=== PATIENT | male | born 1935 | race Caucasian/White ===

== ENCOUNTER 2016-07-07 15:03 | Emergency (ER) | payer MEDICARE ==
[2016-07-07] MEDS ORDERED: Fluorescein Sodium TOPICAL* 1 MG TEST ONE (16:06)
[2016-07-07] MEDS ORDERED: BSS OPTH.SOL* BTL ONE (16:06)
[2016-07-07] MEDS ORDERED: Tetracaine 0.5% OPTH.SOL 15ML* BTL ONE (16:07)
[2016-07-07 16:09] VITALS: BP 177/106
--- NOTE | 2016-07-07 16:09 | UC ---
Eye Complaint HPI - HPI Summary HPI Summary: irritation of right eye occurred during shower this morning, light bothers his eye vision is blurry from the clear drainage - History of Current Complaint Chief Complaint: UCEye Stated Complaint: EYE IRRITATION Time Seen by Provider: 07/07/16 16:00 Hx Obtained From: Patient Onset/Duration: Sudden Onset, Lasting Hours, Still Present Timing: Constant Severity Initially: Moderate Severity Currently: Moderate Pain Intensity: 5 Pain Scale Used: 0-10 Numeric Location of Injury: Conjunctiva Aggravating Factor(s): Light Alleviating Factor(s): Darkness Associated Signs And Symptoms: Positive: Drainage (Clear) - Allergies/Home Medications Allergies/Adverse Reactions: Allergies Allergy/AdvReac Type Severity Reaction Status Date / Time No Known Allergies Allergy Verified 07/07/16 15:57 PMH/Surg Hx/FS Hx/Imm Hx Previously Healthy: No Endocrine History Of: Denies: Diabetes Cardiovascular History Of: Reports: Hypertension Denies: Pacemaker/ICD Respiratory History Of: Denies: Asthma GI/ History Of: Denies: Renal Disease - Surgical History Surgical History: Yes Surgery Procedure, Year, and Place: pelvic fx, bladder tumor - Family History Known Family History: Positive: Hypertension - Social History Occupation: Retired Lives: With Family Alcohol Use: Occasionally Substance Use Type: None Smoking Status (MU): Current Some Day Smoker - Immunization History Most Recent Tetanus Shot: within last 5 years Review of Systems Constitutional: Negative Skin: Negative Eyes: Blurred Vision - od, Drainage - od, Eye Redness - od, Other - upper lid puffy ENT: Negative Respiratory: Negative Cardiovascular: Negative Gastrointestinal: Negative Genitourinary: Negative Motor: Negative Neurovascular: Negative Musculoskeletal: Negative Neurological: Negative Psychological: Negative All Other Systems Reviewed And Are Negative: Yes Physical Exam Triage Information Reviewed: Yes Appearance: Well-Appearing, No Pain Distress, Well-Nourished Vital Signs Reviewed: Yes Eye Exam: Normal Eyes: Positive: Conjunctiva Clear - os, Conjunctiva Inflamed - od, Discharge - clear od ENT Exam: Normal ENT: Positive: Normal ENT inspection, Hearing grossly normal, Pharynx normal, TMs normal. Negative: Nasal congestion, Nasal drainage, Tonsillar swelling, Tonsillar exudate, Trismus, Muffled/hoarse voice Dental Exam: Normal Neck exam: Normal Neck: Positive: Supple, Nontender, No Lymphadenopathy Respiratory Exam: Normal Respiratory: Positive: Chest non-tender, Lungs clear, Normal breath sounds, No respiratory distress, No accessory muscle use Cardiovascular Exam: Normal Cardiovascular: Positive: RRR, Pulses Normal, Brisk Capillary Refill Musculoskeletal Exam: Normal Musculoskeletal: Positive: Strength Intact, ROM Intact, No Edema Neurological Exam: Normal Neurological: Positive: Alert, Muscle Tone Normal Psychological Exam: Normal Psychological: Positive: Normal Response To Family, Age Appropriate Behavior Skin Exam: Normal Re-Evaluation - Re-Evaluation First Eval Change: Unchanged - eye stained ulceration at 7pm and 11pm no fb Eye Complaint Course/Dx - Course Course Of Treatment: cipro drops, follow with his opthomologist tomorrow, tylenol/ibuprofen for pain - Differential Dx/Diagnosis Differential Diagnosis/HQI/PQRI: Conjunctivitis, Corneal Abrasion, Uveitis Provider Diagnoses: OD corneal ulceration Discharge - Discharge Plan Condition: Stable Disposition: HOME Prescriptions: Ciprofloxacin 0.3% [email or web address]* [Cipro 0.3% Opth*] 2 drop RIGHT EYE Q4H #1 btl Patient Education Materials: Ciprofloxacin (Into the eye), How to Use Eye Drops (ED), Corneal Ulcer (ED), DASH Eating Plan (ED), Hypertension (ED) Referrals: George Ding MD [Primary Care Provider] - Additional Instructions: Follow up with Dr. Jack Ridley on Friday for a re-check
== END 2016-07-07 16:44 | disposition home or self-care (01) ==
LOC: UCEAST 15:03
DX: H16.001 Unspecified corneal ulcer, right eye (principal); F17.290 Nicotine dependence, other tobacco product, uncomplicated; I10 Essential (primary) hypertension
CPT/HCPCS: 99212; A9270-GY; G0463

== ENCOUNTER 2016-07-19 14:46 | Emergency (ER) | payer MEDICARE ==
[2016-07-19 14:54] VITALS: BP 154/96
[2016-07-19 16:18] LABS: Hematocrit 54 % (42-52); Hemoglobin 17.7 g/dl (14.0-18.0); Mean Corpuscular HGB Conc 33 g/dl (31-36); Mean Corpuscular Hemoglobin 30 pg (27-31); Mean Corpuscular Volume 92 fL (80-94); Mean Platelet Volume 9 um3 (7.4-10.4); Red Blood Count 5.88 10^6/ul (4.0-5.4); Red Cell Distribution Width 16 % (10.5-15); White Blood Count 12.3 10^3/ul (3.5-10.8)
[2016-07-19 16:34] LABS: C Reactive Protein 20.25 mg/L (< 5.00); Calcium 10.3 mg/dL (8.6-10.3); EGFR African American 101.8 (>60); EGFR Non-African American 79.2 (>60); Globulin 3.2 g/dL (2-4); Potassium 3.6 mmol/L (3.5-5.0); Total Bilirubin 0.4 mg/dL (0.2-1.0); Total Protein 7.2 g/dL (6.4-8.9)
[2016-07-19] MEDS ORDERED: NS 0.9% 1000 ML* 1,000 ML IV ONE (17:23)
[2016-07-19] MEDS ORDERED: Vancomycin(*) 1,250 MG in NS 0.9% 250 ML* 250 ML IVPB ONE (17:25)
--- NOTE | 2016-07-19 17:33 | ED ---
Skin Complaint - HPI Summary HPI Summary: Pt sent here from [facility] w/ abscess and pain along front of waistline x 2 days. No sure of this was present sooner however he only felt it yesterday. Only hurt to touch - otherwise, doesn't notice it. Denies fever, chills, drainage, new onset fatigue (reports feeling more tired over the past 1 year - his daughter comments it's been 2 years). He has diabetes which is typically 120's and controlled w/ metformin 500mg with breakfast. No known h/o MRSA. Takes coumadin for a. fib - due to have labs checked today. - History of Current Complaint Chief Complaint: EDGeneral Time Seen by Provider: 07/19/16 16:19 Stated Complaint: INFECTION Hx Obtained From: Patient, Family/Data Integrity Consultant - daughter Pain Intensity: 0 - Allergy/Home Medications Allergies/Adverse Reactions: Allergies Allergy/AdvReac Type Severity Reaction Status Date / Time No Known Allergies Allergy Verified 07/07/16 15:57 PMH/Surg Hx/FS Hx/Imm Hx Previously Healthy: Yes Endocrine/Hematology History: Reports: Hx Anticoagulant Therapy - coumadin, Hx Diabetes - well controlled w/ metformin 500mg QD Denies: Hx Thyroid Disease Cardiovascular History: Reports: Hx Atrial Fibrillation, Hx Hypertension Denies: Hx Congestive Heart Failure, Hx Pacemaker/ICD Respiratory History: Denies: Hx Asthma, Hx Chronic Obstructive Pulmonary Disease (COPD) GI History: Denies: Hx Ulcer History: Denies: Hx Renal Disease Sensory History: Denies: Hx Hearing Aid Psychiatric History: Denies: Hx Panic Disorder - Cancer History Cancer Type, 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 Hx Chemotherapy: No Hx Radiation Therapy: Yes - Surgical History Surgery Procedure, Year, and Place: pelvic fx, bladder tumor - Immunization History Date of Tetanus Vaccine: within 10 years Infectious Disease History: No Infectious Disease History: Denies: Hx Clostridium Difficile, Hx Hepatitis, Hx Human Immunodeficiency Virus (HIV), Hx of Known/Suspected MRSA, Hx Shingles, Hx Tuberculosis, Hx Known/ Suspected VRE, Hx Known/Suspected VRSA, History Other Infectious Disease, Traveled Outside the [place] in Last 30 Days - Family History Known Family History: Positive: Hypertension - Social History Occupation: Retired Lives: With Family - daughter Alcohol Use: Occasionally Hx Substance Use: No Substance Use Type: Reports: None Smoking Status (MU): Current Some Day Smoker Type: Cigars Review of Systems Positive: Fatigue - chronic. Negative: Fever, Chills Negative: Chest Pain Negative: Shortness Of Breath Positive: no symptoms reported Skin: Other - see HPI Negative: Headache Psychological: Normal All Other Systems Reviewed And Are Negative: Yes Physical Exam Triage Information Reviewed: Yes Vital Signs On Initial Exam: Initial Vitals Temp Pulse Resp BP Pulse Ox 96.9 F 107 20 154/96 98 07/19/16 14:51 07/19/16 14:51 07/19/16 14:51 07/19/16 14:51 07/19/16 14:51 Vital Signs Reviewed: Yes Appearance: Positive: Well-Appearing, No Pain Distress - at rest - pain w/ palpation of affected area, Obese Skin: Positive: Warm, Dry - 3cm area of raised, shiny erythematous tissue with central pore which appears to be a 2mm open comedone - peripheral erythema extends out 5-6cm - no drainge - TTP Head/Face: Positive: Other - rosacea w/ rhinophyma Eyes: Positive: EOMI ENT: Positive: Hearing grossly normal Respiratory/Lung Sounds: Positive: Clear to Auscultation, Breath Sounds Present Cardiovascular: Positive: Normal, RRR, Pulses are Symmetrical in both Upper and Lower Extremities Abdomen Description: Positive: Nontender, Soft Bowel Sounds: Positive: Present Musculoskeletal: Positive: Normal, Strength/ROM Intact Neurological: Positive: Normal, Sensory/Motor Intact, Alert, Oriented to Person Place, Time, CN Intact II-III Psychiatric: Positive: Normal Procedures - Incision and Drainage Site: Abdomen (anterior waistline) Anesthesia: Topical - lidocaine Instrument(s): Needle - 18 gauge - seroparticulate fluid aspirated - 3cc; cx taken Packing: Other - no packing - covered w/ ab gauze pad - henodynamically stable - pt tolerated well Diagnostics - Vital Signs Vital Signs Temp Pulse Resp BP Pulse Ox 07/19/16 14:53 98.5 F 103 20 154/96 98 07/19/16 14:51 96.9 F 107 20 154/96 98 - Laboratory Lab Results: Lab Results 07/19/16 07/19/16 07/19/16 Range/Units 16:10 16:10 16:10 WBC 12.3 H (3.5-10.8) 10^3/ul RBC 5.88 H (4.0-5.4) 10^6/ul Hgb 17.7 (14.0-18.0) g/dl Hct 54 H (42-52) % MCV 92 (80-94) fL MCH 30 (27-31) pg MCHC 33 (31-36) g/dl RDW 16 H (10.5-15) % Plt Count 210 (150-450) 10^3/ul MPV 9 (7.4-10.4) um3 Neut % (Auto) 77.7 (38-83) % Lymph % (Auto) 13.5 L (25-47) % [place] % (Auto) 7.2 (1-9) % Eos % (Auto) 1.1 (0-6) % Baso % (Auto) 0.5 (0-2) % Absolute Neuts (auto) 9.5 H (1.5-7.7) 10^3/ul Absolute Lymphs (auto) 1.7 (1.0-4.8) 10^3/ul Absolute Monos (auto) 0.9 H (0-0.8) 10^3/ul Absolute Eos (auto) 0.1 (0-0.6) 10^3/ul Absolute Basos (auto) 0.1 (0-0.2) 10^3/ul Absolute Nucleated RBC 0 10^3/ul Nucleated RBC % 0 INR (Anticoag Therapy) 2.24 H (0.89-1.11) Sodium 135 (133-145) mmol/L Potassium 3.6 (3.5-5.0) mmol/L Chloride 101 (101-111) mmol/L Carbon Dioxide 27 (22-32) mmol/L Anion Gap 7 (2-11) mmol/L BUN 12 (6-24) mg/dL Creatinine 0.92 (0.67-1.17) mg/dL Est GFR ( Amer) 101.8 (>60) Est GFR (Non-Af Amer) 79.2 (>60) BUN/Creatinine Ratio 13.0 (8-20) Glucose 170 H (70-100) mg/dL Lactic Acid (0.5-2.0) mmol/L Calcium 10.3 (8.6-10.3) mg/dL Total Bilirubin 0.40 (0.2-1.0) mg/dL AST 22 (13-39) U/L ALT 31 (7-52) U/L Alkaline Phosphatase 76 (34-104) U/L C-Reactive Protein 20.25 H (< 5.00) mg/L Total Protein 7.2 (6.4-8.9) g/dL Albumin 4.0 (3.2-5.2) g/dL Globulin 3.2 (2-4) g/dL Albumin/Globulin Ratio 1.3 (1-3) // Range/Units 16:10 WBC (3.5-10.8) 10^3/ul RBC (4.0-5.4) 10^6/ul Hgb (14.0-18.0) g/dl Hct (42-52) % MCV (80-94) fL MCH (27-31) pg MCHC (31-36) g/dl RDW (10.5-15) % Plt Count (150-450) 10^3/ul MPV (7.4-10.4) um3 Neut % (Auto) (38-83) % Lymph % (Auto) (25-47) % [place] % (Auto) (1-9) % Eos % (Auto) (0-6) % Baso % (Auto) (0-2) % Absolute Neuts (auto) (1.5-7.7) 10^3/ul Absolute Lymphs (auto) (1.0-4.8) 10^3/ul Absolute Monos (auto) (0-0.8) 10^3/ul Absolute Eos (auto) (0-0.6) 10^3/ul Absolute Basos (auto) (0-0.2) 10^3/ul Absolute Nucleated RBC 10^3/ul Nucleated RBC % INR (Anticoag Therapy) (0.89-1.11) Sodium (133-145) mmol/L Potassium (3.5-5.0) mmol/L Chloride (101-111) mmol/L Carbon Dioxide (22-32) mmol/L Anion Gap (2-11) mmol/L BUN (6-24) mg/dL Creatinine (0.67-1.17) mg/dL Est GFR ( Amer) (>60) Est GFR (Non-Af Amer) (>60) BUN/Creatinine Ratio (8-20) Glucose (70-100) mg/dL Lactic Acid 2.4 H* (0.5-2.0) mmol/L Calcium (8.6-10.3) mg/dL Total Bilirubin (0.2-1.0) mg/dL AST (13-39) U/L ALT (7-52) U/L Alkaline Phosphatase (34-104) U/L C-Reactive Protein (< 5.00) mg/L Total Protein (6.4-8.9) g/dL Albumin (3.2-5.2) g/dL Globulin (2-4) g/dL Albumin/Globulin Ratio (1-3) Result Diagrams: 07/19/16 16:10 07/19/16 16:10 Lab Statement: Any lab studies that have been ordered have been reviewed, and results considered in the medical decision making process. Course/Dx - Diagnoses Provider Diagnoses: Abscess, abdomen - Physician Notifications Discussed Care Of Patient With: Dr. Malave Discharge - Discharge Plan Condition: Stable Disposition: HOME Prescriptions: DOXYcycline CAP(*) [DOXYcycline 100MG CAP(*)] 100 mg PO BID #20 cap Patient Education Materials: Incision and Drainage (ED), Abscess (ED) Referrals: George Ding MD [Primary Care Provider] - Additional Instructions: Apply warm saline compress to keep tissue soft and reduce inflammation as well as allow for drainage. Otherwise, keep wound clean and covered. May way daily with antibacterial soap and rinse well with water - pat dry with clean cloth and apply clean/dry gauze pad - do not apply antibiotic ointment. You may take acetaminophen and/or ibuprofen for pain. Follow-up with PCP Friday. Continue to monitor glucose levels. *If you develop fever, chills, lethargy, confusion, vomiting or spreading of redness in affected area, return to ED
[2016-07-19] MEDS ORDERED: NS 0.9% 250 ML* 0 ML ONE (17:46)
== END 2016-07-19 20:21 | disposition home or self-care (01) ==
LOC: ED 14:46
DX: L02.211 Cutaneous abscess of abdominal wall (principal); E11.9 Type 2 diabetes mellitus without complications; I48.91 Unspecified atrial fibrillation; Z79.01 Long term (current) use of anticoagulants; Z79.899 Other long term (current) drug therapy
CPT/HCPCS: 10060; 36415; 80053; 83605; 85025; 85610; 86140; 87070; 87077; 87205; 87640; 87641; 96365; 99282; J3370

== ENCOUNTER 2016-11-12 09:56 | Emergency (ER) | payer MEDICARE ==
--- NOTE | 2016-11-12 11:09 | RAD ---
HISTORY: Right shoulder trauma COMPARISONS: None VIEWS: 4, Frontal internal rotation, external rotation, outlet, and axillary views of the right shoulder. Evaluation is somewhat limited by positioning. FINDINGS: BONE DENSITY: There is diffuse osteopenia. BONES: There is no displaced fracture. JOINTS: There is mild osteoporosis of the a.c. and glenohumeral joints. ALIGNMENT: There is no dislocation. SOFT TISSUES: Unremarkable. OTHER FINDINGS: None. IMPRESSION: OSTEOPENIA. NO ACUTE OSSEOUS INJURY. THE DEGREE OF OSTEOPENIA MAY MAKE A NONDISPLACED FRACTURE RADIOGRAPHICALLY OCCULT. IF SYMPTOMS PERSIST, RECOMMEND REPEAT IMAGING.
--- NOTE | 2016-11-12 11:13 | RAD ---
INDICATION: Right wrist injury. TECHNIQUE: 3 views of the right wrist were obtained. FINDINGS: The bones are normal alignment. No fracture is seen. There is mild widening of the scapholunate joint space suggesting the possibility of a scapholunate ligament tear. IMPRESSION: 1. NO EVIDENCE FOR FRACTURE. 2. POSSIBLE SCAPHOLUNATE LIGAMENT TEAR. THIS CAN BE FURTHER EVALUATED WITH AN MRI OF THE WRIST.
--- NOTE | 2016-11-12 11:13 | RAD ---
HISTORY: Right elbow trauma COMPARISONS: None VIEWS: 2, Frontal and lateral views of the right elbow FINDINGS: BONE DENSITY: Normal. BONES: There is no displaced fracture. JOINTS: There is no arthropathy. There is no posterior supracondylar fat pad to suggest a joint effusion. ALIGNMENT: There is no dislocation. SOFT TISSUES: Unremarkable. OTHER FINDINGS: None. IMPRESSION: NO ACUTE OSSEOUS INJURY. IF SYMPTOMS PERSIST, RECOMMEND REPEAT IMAGING.
--- NOTE | 2016-11-12 12:07 | UC ---
Amandeep Valentin Angela[facility] 11/12/16 at 1032 . Upper Extremity HPI - HPI Summary HPI Summary: In Room Note: This pt is a 81 y/o male presenting to [facility] c/o right arm and right shoulder pain s/p falling a ladder 2 days ago on Friday. Pt reports he was on a ladder when he slipped and hit his right hand and right shoulder, landing on his knees. He states he has an ecchymosis on the palm of his right hand. Pt has not taken any pain medications. He has difficulty sleeping secondary to pain. Per daughter in law, pt has a "smokers" cough that is every day. Pt denies SOB, chest pain, He has a hx of dislocated shoulders. Last time pt saw his PCP was a few months ago. PMHx: sleep apnea. MD's Note: 81 y/o male with history of atrial fibrillation reports falling 2 days ago. Vital signs are stable. BP is 135/91, pulse ox is 98. Pt has 6 out of 10 pain. PMHx: hypertension, type 2 diabetes. Pt is on Lisinopril. Nurse's Note: pt fell off of a ladder on friday hitting his rt upper arm. pt states that he was only on the second wrung. - History of Current Complaint Chief Complaint: UCUpperExtremity Stated Complaint: ARM INJURY Hx Obtained From: Patient, Family/Supervisor Cytology - Daughter in law Onset/Duration: Gradual Onset Pain Intensity: 6 Pain Scale Used: 0-10 Numeric Aggravating Factor(s): Movement Alleviating Factor(s): Nothing Associated Signs And Symptoms: Positive: Swelling, Bruising. Negative: Fever, Weakness, Numbness/Tingling Related History: Dominant Hand Right - Allergies/Home Medications Allergies/Adverse Reactions: Allergies Allergy/AdvReac Type Severity Reaction Status Date / Time No Known Allergies Allergy Verified 07/07/16 15:57 PMH/Surg Hx/FS Hx/Imm Hx - Additional Past Medical History Additional PMH: PMHx: sleep apnea. Endocrine History: Diabetes - Type 2 Cardiovascular History: Hypertension Other Respiratory History: DENIES: COPD, asthma - Surgical History Surgical History: Yes Surgery Procedure, Year, and Place: pelvic fx, bladder tumor - Family History Known Family History: Positive: Hypertension - mother - Social History Alcohol Use: Rare Substance Use Type: None Smoking Status (MU): Current Some Day Smoker Type: Cigars - Immunization History Most Recent Influenza Vaccination: denies Most Recent Tetanus Shot: within last 5 years Review of Systems Constitutional: Negative Skin: Bruising - on right hand Eyes: Negative ENT: Negative Respiratory: Negative Cardiovascular: Negative Gastrointestinal: Negative Genitourinary: Negative Motor: Negative Musculoskeletal: Other: - right shoulder pain Neurological: Negative Psychological: Negative All Other Systems Reviewed And Are Negative: Yes Physical Exam Triage Information Reviewed: Yes Appearance: Well-Appearing, No Pain Distress, Well-Nourished Vital Signs: Initial Vital Signs Temp 97.2 F 11/12/16 10:00 Pulse 97 11/12/16 10:00 Resp 18 11/12/16 10:00 BP 135/91 11/12/16 10:00 Pulse Ox 98 11/12/16 10:00 Vital Signs Reviewed: Yes Eyes: Positive: Conjunctiva Clear ENT: Positive: Hearing grossly normal, Pharynx normal, TMs normal Neck: Positive: Supple, No Lymphadenopathy Respiratory: Positive: Chest non-tender, Rhonchi - in the left lung base. Cardiovascular: Positive: No Murmur, Other: - Irregular rate and rhythm consistent with atrial fibrillation. Abdomen Description: Positive: Nontender, Soft Musculoskeletal: Positive: Strength Intact, Other: - RUE: RIGHT SHOULDER: THERE IS ECCHYMOSIS ON THE ANTERIOR THORAX AND SIGNIFICANT UNDERNEATH THE RIGHT AXILLA AND THE RIGHT MEDIAL UPPER ARM. THIS WOULD BE CONSISTENT WITH PT WHO HAS HAD SIGNIFICANT INJURY IN HIS FOREARM. PT CAN ABDUCT THE ARM TO ABOUT 45. THERE IS ALSO RESTRICTION BRINGING ARM IN FRONT OF HIS BODY AND BEHIND HIS BODY. THERE IS NO TENDERNESS OVER THE DORSUM OF THE HAND. THERE IS NO LIMITATION OF MOVEMENT OF THE THUMB. ECCHYMOSIS NOTED AROUND THE LATERAL ASPECT OF THE THUMB. IN THE SCAPHOLUNATE JOINT THERE IS NO TENDERNESS. Neurological: Positive: Alert Psychological: Positive: Age Appropriate Behavior Skin: Negative: rashes Diagnostics - Radiology Right Wrist XR Xray Interpretation: Positive (See Comments) - IMPRESSION: 1. No evidence for fracture. 2. Possible scapholunate ligament tear. This can be further evaluated with an MRI of the wrist. ED physician has reviewed this radiology report and agrees. Radiology Interpretation Completed By: Radiologist Right Elbow XR Xray Interpretation: No Acute Changes - IMPRESSION: No acute osseous injury. If symptoms persist, recommend repeat imaging. ED physician has reviewed this radiology report and agrees. Radiology Interpretation Completed By: Radiologist Right Shoulder XR Xray Interpretation: Positive (See Comments) - iMPRESSION: Osteopenia. No acute osseous injury. The degree of osteopenia may make a nondisplaced fracture radiographically occult. If symptoms persist, recommend repeat imaging. ED physician has reviewed this radiology report and agrees. Radiology Interpretation Completed By: Radiologist Upper Extremity Course/Dx - Course Course Of Treatment: Medications have been included in the original chart and reviewed. Elevated BP but has current hypertension diagnosis. On exam, RIGHT SHOULDER: THERE IS ECCHYMOSIS ON THE ANTERIOR THORAX AND SIGNIFICANT UNDERNEATH THE RIGHT AXILLA AND THE RIGHT MEDIAL UPPER ARM. THIS WOULD BE CONSISTENT WITH PT WHO HAS HAD SIGNIFICANT INJURY IN HIS FOREARM. PT CAN ABDUCT THE ARM TO ABOUT 45. THERE IS ALSO RESTRICTION BRINGING ARM IN FRONT OF HIS BODY AND BEHIND HIS BODY. THERE IS NO TENDERNESS OVER THE DORSUM OF THE HAND. THERE IS NO LIMITATION OF MOVEMENT OF THE THUMB. ECCHYMOSIS NOTED AROUND THE LATERAL ASPECT OF THE THUMB. IN THE SCAPHOLUNATE THERE IS NO TENDERNESS. MDM: Pt is advised to do pendulum exercises. I discussed with the pt and his daughter in law to follow up for a possible occult fracture with an orthopod. - Differential Dx/Diagnosis Provider Diagnoses: 1. Right shoudler and upper arm injuries, contusion. 2. Possible occult fracture of upper arm not visible in the XR. 3. Restrictive movement of the right shoulder secondary to pain. Discharge - Discharge Plan Condition: Stable Disposition: HOME Patient Education Materials: Arm Fracture in Adults (ED), Contusion in Adults ( ED), Proximal Humerus Fracture (ED) Referrals: George Ding MD [Primary Care Provider] - George Andrade MD [Medical Doctor] - Additional Instructions: WE DISCUSSED: 1. You have a bad bruise but you may have a HIDDEN BREAK in you right arm. 2. Use sling for comfort. 3. Do PENDULUM EXERCISES and use warm moist heat to area to keep it loose. 4. Follow up with orthopedics in 10 days to make sure that there is no hidden fracture. 5. Re check sooner for any increased pain or disability. 6. One hour before bed use ice and 500mg of acetaminophen and 400mg of ibuprofen for pain. 7. Call your doctor for any new symptoms or problems. 8. I have given you information about various conditions. The documentation as recorded by the Amandeep lal Angela accurately reflects the service I personally performed and the decisions made by me, Ar Moulton MD.
[2016-11-12 12:16] VITALS: BP 140/80
== END 2016-11-12 12:13 | disposition home or self-care (01) ==
LOC: UCEAST 09:56
DX: S40.021A Contusion of right upper arm, initial encounter (principal); S40.011A Contusion of right shoulder, initial encounter; M25.511 Pain in right shoulder; W11.XXXA Fall on and from ladder, initial encounter; G47.33 Obstructive sleep apnea (adult) (pediatric); I48.91 Unspecified atrial fibrillation; I10 Essential (primary) hypertension; E11.9 Type 2 diabetes mellitus without complications; F17.290 Nicotine dependence, other tobacco product, uncomplicated
CPT/HCPCS: 99213; G0463

== ENCOUNTER 2019-09-01 17:08 | Inpatient (IN) ==
[2019-09-01] MEDS ORDERED: NS 0.9% 1000 ml BAG 1,000 ML IV ONE (17:53)
[2019-09-01 18:03] LABS: ABS Basophils 0.1 10^3/ul (0-0.2); ABS Lymphocytes 1.5 10^3/ul (1.0-4.8); ABS Monocytes 1.3 10^3/ul (0-0.8); Eosinophil % 0.4 %; Hematocrit 56 % (42-52); Hemoglobin 18.6 g/dL (14.0-18.0); Lymphocyte % 12.8 %; Mean Corpuscular HGB Conc 33 g/dL (31-36); Mean Corpuscular Hemoglobin 29 pg (27-31); Mean Corpuscular Volume 88 fL (80-94); Platelet Count 224 10^3/uL (150-450); Red Blood Count 6.39 10^6 /uL (4.18-5.48); Red Cell Distribution Width 17 % (10-15); White Blood Count 11.3 10^3/uL (3.5-10.8)
[2019-09-01 18:15] LABS: INR 1.41 (0.82-1.09)
[2019-09-01 18:20] LABS: ALT 29 U/L (7-52); AST 20 U/L (13-39); Albumin 4.2 g/dL (3.2-5.2); Albumin/Globulin Ratio 1.1 (1-3); Alkaline Phosphatase 66 U/L (34-104); Anion Gap 7 mmol/L (2-11); BUN/Creatinine Ratio 23.8 (8-20); Blood Urea Nitrogen 24 mg/dL (6-24); CO2 Carbon Dioxide 27 mmol/L (22-32); Calcium 11.1 mg/dL (8.6-10.3); Chloride 104 mmol/L (101-111); Cholesterol 154 mg/dL; EGFR African American 85.2 (>60); EGFR Non-African American 70.4 (>60); Globulin 3.7 g/dL (2-4); Glucose 168 mg/dL (70-100); HDL Cholesterol 45.1 mg/dL; LDL Cholesterol 83 mg/dL; Potassium 4.4 mmol/L (3.5-5.0); Sodium 138 mmol/L (135-145); Total Protein 7.9 g/dL (6.4-8.9); Triglycerides 131 mg/dL
[2019-09-01] MEDS ORDERED: Iodixanol (CONTRAST) 320 MG/ML 100 ML SDV IV ONE (18:23)
[2019-09-01 18:27] LABS: Troponin I 0.04 ng/mL (<0.03)
[2019-09-01 21:02] LABS: Alcohol, S < 10 mg/dL (<10)
[2019-09-01] MEDS ORDERED: Warfarin 5 mg TAB (*) PO ONE (21:08)
[2019-09-01] MEDS ORDERED: Dextrose 50% Syringe 50 ml 25 GM/50 ML SYRINGE IV PUSH PRN (21:08)
[2019-09-01 21:57] LABS: C Reactive Protein 113.84 mg/L (<8.01)
[2019-09-01] MEDS ORDERED: [UNRECOGNIZED DRUG - OTHER] FOLLOW UP SCH (22:00)
[2019-09-01] MEDS: NS 0.9% 1000 ml BAG 1,000 ML IV SCH (22:37)
[2019-09-01 22:56] LABS: Troponin I 0.05 ng/mL (<0.03)
[2019-09-02 01:55] LABS: Troponin I 0.05 ng/mL (<0.03)
[2019-09-02 03:06] LABS: Urine Appearance Clear; Urine Bilirubin Negative (Negative); Urine Blood Negative (Negative); Urine Color Yellow; Urine Glucose Negative (Negative); Urine Ketones Negative (Negative); Urine Nitrite Negative (Negative); Urine Protein 1+(30 mg/dL) (Negative); Urine Specific Gravity 1.035 (1.010-1.030); Urine Urobilinogen Negative (Negative)
[2019-09-02 03:30] LABS: Urine Bacteria Absent (Absent); Urine Red Blood Cell Absent (Absent); Urine Squamous Epithelial Cell Present (Absent); Urine White Blood Cell Trace(0-5/hpf) (Absent)
[2019-09-02 05:40] LABS: ABS Basophils 0.1 10^3/ul (0-0.2); ABS Eosinophils 0.1 10^3/ul (0-0.6); ABS Lymphocytes 1.6 10^3/ul (1.0-4.8); ABS Monocytes 1.3 10^3/ul (0-0.8); Eosinophil % 1.3 %; Hematocrit 53 % (42-52); Hemoglobin 17.5 g/dL (14.0-18.0); Lymphocyte % 16.2 %; Mean Corpuscular HGB Conc 33 g/dL (31-36); Mean Corpuscular Hemoglobin 29 pg (27-31); Mean Corpuscular Volume 89 fL (80-94); Nucleated Red Blood Cells % 0.1; Platelet Count 215 10^3/uL (150-450); Red Blood Count 5.96 10^6 /uL (4.18-5.48); Red Cell Distribution Width 17 % (10-15)
[2019-09-02 05:56] LABS: Anion Gap 4 mmol/L (2-11); BUN/Creatinine Ratio 20.7 (8-20); Blood Urea Nitrogen 19 mg/dL (6-24); CO2 Carbon Dioxide 28 mmol/L (22-32); Calcium 10.3 mg/dL (8.6-10.3); Chloride 106 mmol/L (101-111); EGFR African American 94.8 (>60); EGFR Non-African American 78.4 (>60); Glucose 139 mg/dL (70-100); Potassium 5.2 mmol/L (3.5-5.0); Sodium 138 mmol/L (135-145)
[2019-09-02 05:57] LABS: INR 1.5 (0.82-1.09)
[2019-09-02] MEDS: NS 0.9% 1000 ml BAG 1,000 ML IV SCH ×2 (06:09→22:40)
[2019-09-02] MEDS: Insulin LISPRO 100 units/ml(*) SUBCUT SCH ×3 (07:54→16:40)
[2019-09-02] MEDS ORDERED: Aspirin EC 81 mg TAB.EC (enteric coated) PO SCH (09:00)
[2019-09-02 09:26] LABS: Troponin I 0.05 ng/mL (<0.03)
[2019-09-02] MEDS ORDERED: Perflutren Lipid Microsphere 3 ML VIAL ONE (10:59)
[2019-09-02] MEDS ORDERED: Nicotine PATCH 21 MG/24 HR PATCH ONE (16:41)
[2019-09-02] MEDS ORDERED: Warfarin 5 mg TAB (*) PO SCH (17:00)
[2019-09-02] MEDS: Rivaroxaban 20 mg TAB (*) PO SCH (17:10)
[2019-09-02] MEDS: Nicotine PATCH 21 MG/24 HR PATCH TRANSDERM SCH (17:10)
[2019-09-03 06:38] LABS: INR 3.84 (0.82-1.09)
[2019-09-03] MEDS: Insulin LISPRO 100 units/ml(*) SUBCUT SCH ×3 (08:11→17:40)
[2019-09-03 08:16] LABS: ABS Basophils 0.1 10^3/ul (0-0.2); ABS Eosinophils 0.1 10^3/ul (0-0.6); ABS Lymphocytes 1.6 10^3/ul (1.0-4.8); ABS Monocytes 1.2 10^3/ul (0-0.8); Eosinophil % 0.6 %; Hematocrit 55 % (42-52); Hemoglobin 17.7 g/dL (14.0-18.0); Mean Corpuscular HGB Conc 32 g/dL (31-36); Mean Corpuscular Hemoglobin 29 pg (27-31); Mean Corpuscular Volume 90 fL (80-94); Mean Platelet Volume 9.3 fL (7.4-10.4); Platelet Count 242 10^3/uL (150-450); Red Blood Count 6.14 10^6 /uL (4.18-5.48); Red Cell Distribution Width 17 % (10-15); White Blood Count 12.3 10^3/uL (3.5-10.8)
[2019-09-03 10:12] LABS: CO2 Carbon Dioxide 21 mmol/L (22-32); Calcium 10.2 mg/dL (8.6-10.3); Chloride 110 mmol/L (101-111); Sodium 139 mmol/L (135-145)
[2019-09-03 10:14] LABS: Anion Gap 8 mmol/L (2-11)
[2019-09-03 10:18] LABS: BUN/Creatinine Ratio 22.5 (8-20); Blood Urea Nitrogen 18 mg/dL (6-24); EGFR African American 111.4 (>60); EGFR Non-African American 92.1 (>60); Glucose 144 mg/dL (70-100)
[2019-09-03 13:54] LABS: C Reactive Protein 30.06 mg/L (<8.01)
[2019-09-03] MEDS: Nicotine PATCH 21 MG/24 HR PATCH TRANSDERM SCH (15:12)
[2019-09-03] MEDS ORDERED: Nicotine PATCH 21 MG/24 HR PATCH TRANSDERM SCH (16:00)
[2019-09-03] MEDS: Rivaroxaban 20 mg TAB (*) PO SCH (17:46)
[2019-09-03] MEDS ORDERED: Furosemide 20 mg/2 ml IV VIAL IV ONE (20:30)
[2019-09-03 21:35] LABS: ABS Basophils 0.1 10^3/ul (0-0.2); ABS Eosinophils 0.1 10^3/ul (0-0.6); ABS Lymphocytes 1.3 10^3/ul (1.0-4.8); ABS Monocytes 1.1 10^3/ul (0-0.8); Eosinophil % 0.5 %; Hematocrit 55 % (42-52); Hemoglobin 17.8 g/dL (14.0-18.0); Lymphocyte % 9.1 %; Mean Corpuscular HGB Conc 32 g/dL (31-36); Mean Corpuscular Hemoglobin 29 pg (27-31); Mean Corpuscular Volume 90 fL (80-94); Mean Platelet Volume 8.9 fL (7.4-10.4); Platelet Count 237 10^3/uL (150-450); Red Blood Count 6.11 10^6 /uL (4.18-5.48); Red Cell Distribution Width 17 % (10-15); White Blood Count 14.4 10^3/uL (3.5-10.8)
[2019-09-03 21:56] LABS: Albumin/Globulin Ratio 1.3 (1-3); BUN/Creatinine Ratio 17.5 (8-20); Calcium 10.4 mg/dL (8.6-10.3); EGFR African American 89.2 (>60); EGFR Non-African American 73.7 (>60); Globulin 3.2 g/dL (2-4); Potassium 4.2 mmol/L (3.5-5.0); Total Bilirubin 0.7 mg/dL (0.2-1.0); Total Protein 7.2 g/dL (6.4-8.9)
[2019-09-03] MEDS ORDERED: Furosemide 20 mg/2 ml IV VIAL ONE ×2 (22:06→22:50)
[2019-09-03] MEDS ORDERED: Furosemide 20 mg/2 ml IV VIAL IV SLOW PU ONE (22:28)
[2019-09-04] MEDS ORDERED: Furosemide 20 mg/2 ml IV VIAL ONE (02:31)
[2019-09-04 06:03] LABS: ABS Eosinophils 0.1 10^3/ul (0-0.6); ABS Lymphocytes 1.1 10^3/ul (1.0-4.8); ABS Monocytes 0.9 10^3/ul (0-0.8); Eosinophil % 0.8 %; Hematocrit 56 % (42-52); Hemoglobin 18.1 g/dL (14.0-18.0); Lymphocyte % 10.9 %; Mean Corpuscular HGB Conc 32 g/dL (31-36); Mean Corpuscular Hemoglobin 29 pg (27-31); Mean Corpuscular Volume 91 fL (80-94); Mean Platelet Volume 8.8 fL (7.4-10.4); Nucleated Red Blood Cells % 0.1; Platelet Count 184 10^3/uL (150-450); Red Blood Count 6.18 10^6 /uL (4.18-5.48); Red Cell Distribution Width 18 % (10-15); White Blood Count 10.5 10^3/uL (3.5-10.8)
[2019-09-04 06:08] LABS: INR 3.88 (0.82-1.09)
[2019-09-04 06:17] LABS: EGFR African American 109.9 (>60); EGFR Non-African American 90.8 (>60); Potassium 4.1 mmol/L (3.5-5.0)
[2019-09-04] MEDS: Insulin LISPRO 100 units/ml(*) SUBCUT SCH ×3 (08:56→16:44)
[2019-09-04] MEDS: Nicotine PATCH 21 MG/24 HR PATCH TRANSDERM SCH (16:40)
[2019-09-04] MEDS: Rivaroxaban 20 mg TAB (*) PO SCH (16:41)
[2019-09-05] MEDS: Insulin LISPRO 100 units/ml(*) SUBCUT SCH ×3 (08:28→17:11)
[2019-09-05 09:17] LABS: Hematocrit 56 % (42-52); Hemoglobin 18.4 g/dL (14.0-18.0); Mean Corpuscular HGB Conc 33 g/dL (31-36); Mean Corpuscular Hemoglobin 30 pg (27-31); Mean Corpuscular Volume 91 fL (80-94); Mean Platelet Volume 9.3 fL (7.4-10.4); Platelet Count 208 10^3/uL (150-450); Red Blood Count 6.21 10^6 /uL (4.18-5.48); Red Cell Distribution Width 17 % (10-15); White Blood Count 11.8 10^3/uL (3.5-10.8)
[2019-09-05 09:18] LABS: INR 3.22 (0.82-1.09)
[2019-09-05 09:22] LABS: ABS Basophils 0.1 10^3/ul (0-0.2); ABS Eosinophils 0.2 10^3/ul (0-0.6); ABS Lymphocytes 1.3 10^3/ul (1.0-4.8); Eosinophil % 1.7 %; Lymphocyte % 10.9 %; Nucleated Red Blood Cells % 0.1
[2019-09-05 09:30] LABS: CO2 Carbon Dioxide 23 mmol/L (22-32); Chloride 105 mmol/L (101-111); Sodium 138 mmol/L (135-145)
[2019-09-05 09:36] LABS: Blood Urea Nitrogen 20 mg/dL (6-24); EGFR African American 101.2 (>60); EGFR Non-African American 83.6 (>60); Glucose 115 mg/dL (70-100)
[2019-09-05 09:40] LABS: Anion Gap 10 mmol/L (2-11)
[2019-09-05] MEDS: Rivaroxaban 20 mg TAB (*) PO SCH (17:20)
[2019-09-05] MEDS: Nicotine PATCH 21 MG/24 HR PATCH TRANSDERM SCH (17:20)
[2019-09-05] MEDS ORDERED: Metoprolol Tartrate 5 mg VIAL 5 ml VIAL (1 mg/ml) IV ONE (17:34)
[2019-09-05] MEDS ORDERED: Metoprolol Tartrate 5 mg VIAL 5 ml VIAL (1 mg/ml) ONE (19:54)
[2019-09-06] MEDS ORDERED: Metoprolol Tartrate 5 mg VIAL 5 ml VIAL (1 mg/ml) IV PRN (05:15)
[2019-09-06] MEDS: Insulin LISPRO 100 units/ml(*) SUBCUT SCH ×3 (07:38→16:34)
[2019-09-06] MEDS: Rivaroxaban 20 mg TAB (*) PO SCH (16:34)
[2019-09-06] MEDS: Nicotine PATCH 21 MG/24 HR PATCH TRANSDERM SCH (16:34)
[2019-09-07] MEDS: Insulin LISPRO 100 units/ml(*) SUBCUT SCH (08:18)
[2019-09-07 17:13] VITALS: BP 131/102
== END 2019-09-07 10:30 | DRG 65 ==
LOC: ED 17:08 → MEDTELE 20:56
PROVIDERS: ADMIT Nurse Practitioner Family; ATTEND Internal Medicine

== ENCOUNTER 2020-05-30 11:00 | Inpatient (IN) ==
[2020-05-30] MEDS ORDERED: NS 0.9% 1000 ml BAG 1,000 ML IV ONE (11:14)
[2020-05-30] MEDS ORDERED: Iodixanol (CONTRAST) 320 MG/ML 100 ML SDV IV ONE (11:26)
[2020-05-30 11:31] LABS: ABS Eosinophils 0.1 10^3/ul (0-0.6); ABS Lymphocytes 2.5 10^3/ul (1.0-4.8); ABS Neutrophils 6.5 10^3/ul (1.5-7.7); Eosinophil % 1.3 %; Hematocrit 53 % (42-52); Hemoglobin 17.5 g/dL (14.0-18.0); Lymphocyte % 24.4 %; Mean Corpuscular HGB Conc 33 g/dL (31-36); Mean Corpuscular Hemoglobin 30 pg (27-31); Mean Corpuscular Volume 91 fL (80-94); Mean Platelet Volume 9.1 fL (7.4-10.4); Platelet Count 216 10^3/uL (150-450); Red Cell Distribution Width 16 % (10-15); White Blood Count 10.1 10^3/uL (3.5-10.8)
[2020-05-30 11:41] LABS: Albumin 4.1 g/dL (3.2-5.2); Anion Gap 5 mmol/L (2-11); CO2 Carbon Dioxide 31 mmol/L (22-32); Calcium 10.8 mg/dL (8.6-10.3); Chloride 100 mmol/L (101-111); Potassium 3.8 mmol/L (3.5-5.0); Sodium 136 mmol/L (135-145)
[2020-05-30 11:47] LABS: ALT 38 U/L (7-52); AST 30 U/L (13-39); Albumin/Globulin Ratio 1.3 (1-3); Alkaline Phosphatase 83 U/L (34-104); BUN/Creatinine Ratio 21.4 (8-20); Blood Urea Nitrogen 18 mg/dL (6-24); Cholesterol 99 mg/dL; EGFR African American 105.3 (>60); EGFR Non-African American 87.1 (>60); Globulin 3.1 g/dL (2-4); Glucose 168 mg/dL (70-100); HDL Cholesterol 36.4 mg/dL; Total Protein 7.2 g/dL (6.4-8.9)
[2020-05-30 11:50] LABS: Activated Partial Thrombo Time 39.6 seconds (26.0-38.0); INR 1.43 (0.82-1.09)
[2020-05-30 11:52] LABS: Troponin I 0.03 ng/mL (<0.03)
[2020-05-30 12:29] LABS: Urine Appearance Cloudy; Urine Bilirubin Negative (Negative); Urine Blood Negative (Negative); Urine Color Yellow; Urine Glucose Negative (Negative); Urine Ketones Negative (Negative); Urine Nitrite Negative (Negative); Urine Protein 2+(100 mg/dL) (Negative); Urine Specific Gravity 1.029 (1.010-1.030); Urine Urobilinogen Negative (Negative)
[2020-05-30 13:46] LABS: Urine Bacteria Absent (Absent); Urine Red Blood Cell Absent (Absent); Urine Squamous Epithelial Cell Present (Absent); Urine White Blood Cell Absent (Absent)
[2020-05-30 14:11] LABS: LDL Cholesterol 24 mg/dL; Triglycerides 192 mg/dL
[2020-05-30] MEDS ORDERED: Furosemide 20 mg/2 ml IV VIAL IV ONE (15:05)
[2020-05-30] MEDS ORDERED: Furosemide 20 mg/2 ml IV VIAL ONE (15:06)
[2020-05-30 15:39] LABS: Troponin I 0.04 ng/mL (<0.03)
[2020-05-30] MEDS: NFT: Multivitamins/Mins AREDS2 (NF) CAP PO SCH (21:41)
[2020-05-30] MEDS: Trospium 20 mg TAB (NF) PO SCH (21:41)
[2020-05-31] MEDS ORDERED: Lorazepam PYXIS KEY PRN ×2 (05:45→15:51)
[2020-05-31] MEDS ORDERED: LORazepam 2 mg VIAL 1 ml IV PUSH PRN (05:45)
[2020-05-31] MEDS ORDERED: LORazepam 2 mg VIAL 1 ml ONE (05:57)
[2020-05-31] MEDS: Vitamin THERAPEUTIC TAB PO SCH (10:32)
[2020-05-31] MEDS: NFT: Multivitamins/Mins AREDS2 (NF) CAP PO SCH ×2 (10:32→20:51)
[2020-05-31] MEDS: Trospium 20 mg TAB (NF) PO SCH ×2 (10:33→20:51)
[2020-05-31] MEDS: Aspirin EC 81 mg TAB.EC (enteric coated) PO SCH (16:06)
[2020-05-31] MEDS: LORazepam 2 mg VIAL 1 ml IV PUSH PRN (21:57)
[2020-06-01] MEDS ORDERED: Perflutren Lipid Microsphere 3 ML VIAL ONE (07:53)
[2020-06-01] MEDS: Vitamin THERAPEUTIC TAB PO SCH (08:36)
[2020-06-01] MEDS: Aspirin EC 81 mg TAB.EC (enteric coated) PO SCH (08:36)
[2020-06-01] MEDS: Trospium 20 mg TAB (NF) PO SCH ×2 (08:37→20:47)
[2020-06-01] MEDS: NFT: Multivitamins/Mins AREDS2 (NF) CAP PO SCH (08:37)
[2020-06-02] MEDS: Vitamin THERAPEUTIC TAB PO SCH (09:47)
[2020-06-02] MEDS: Aspirin EC 81 mg TAB.EC (enteric coated) PO SCH (09:47)
[2020-06-02] MEDS: NFT: Multivitamins/Mins AREDS2 (NF) CAP PO SCH (09:47)
[2020-06-02] MEDS: Trospium 20 mg TAB (NF) PO SCH ×2 (09:49→20:56)
[2020-06-02 21:32] LABS: Calcium 10.8 mg/dL (8.6-10.3); EGFR Non-African American 79.4 (>60); Potassium 4.6 mmol/L (3.5-5.0)
[2020-06-02] MEDS: LORazepam 2 mg VIAL 1 ml IV PUSH PRN (22:10)
[2020-06-02] MEDS ORDERED: Lorazepam PYXIS KEY PRN (23:59)
[2020-06-02] MEDS ORDERED: LORazepam 2 mg VIAL 1 ml IV PUSH ONE (23:59)
[2020-06-03 06:18] LABS: BUN/Creatinine Ratio 20.7 (8-20); Calcium 10.4 mg/dL (8.6-10.3); EGFR African American 108.3 (>60); EGFR Non-African American 89.5 (>60); Potassium 4.5 mmol/L (3.5-5.0)
[2020-06-03] MEDS ORDERED: Lorazepam PYXIS KEY PRN (06:24)
[2020-06-03] MEDS ORDERED: LORazepam 2 mg VIAL 1 ml IV PUSH ONE (06:25)
[2020-06-03] MEDS: Aspirin EC 81 mg TAB.EC (enteric coated) PO SCH (09:49)
[2020-06-03] MEDS: NFT: Multivitamins/Mins AREDS2 (NF) CAP PO SCH (09:49)
[2020-06-03] MEDS: Vitamin THERAPEUTIC TAB PO SCH (09:50)
[2020-06-03] MEDS: Trospium 20 mg TAB (NF) PO SCH ×2 (09:50→20:41)
[2020-06-04 06:05] LABS: ABS Basophils 0.1 10^3/ul (0-0.2); ABS Eosinophils 0.2 10^3/ul (0-0.6); ABS Lymphocytes 2.2 10^3/ul (1.0-4.8); ABS Monocytes 1.2 10^3/ul (0-0.8); ABS Neutrophils 7.7 10^3/ul (1.5-7.7); Eosinophil % 2.1 %; Hematocrit 54 % (42-52); Hemoglobin 17.8 g/dL (14.0-18.0); Lymphocyte % 19.6 %; Mean Corpuscular HGB Conc 33 g/dL (31-36); Mean Corpuscular Hemoglobin 30 pg (27-31); Mean Corpuscular Volume 92 fL (80-94); Mean Platelet Volume 9.2 fL (7.4-10.4); Nucleated Red Blood Cells % 0.1; Platelet Count 230 10^3/uL (150-450); Red Blood Count 5.84 10^6 /uL (4.18-5.48); Red Cell Distribution Width 16 % (10-15); White Blood Count 11.5 10^3/uL (3.5-10.8)
[2020-06-04 06:21] LABS: BUN/Creatinine Ratio 23.5 (8-20); Calcium 10.4 mg/dL (8.6-10.3); EGFR African American 103.9 (>60); EGFR Non-African American 85.9 (>60); Potassium 4.2 mmol/L (3.5-5.0)
[2020-06-04] MEDS: Vitamin THERAPEUTIC TAB PO SCH (08:24)
[2020-06-04] MEDS: Aspirin EC 81 mg TAB.EC (enteric coated) PO SCH (08:24)
[2020-06-04] MEDS: NFT: Multivitamins/Mins AREDS2 (NF) CAP PO SCH (08:24)
[2020-06-04] MEDS: Trospium 20 mg TAB (NF) PO SCH ×2 (08:26→20:45)
[2020-06-05] MEDS: Aspirin EC 81 mg TAB.EC (enteric coated) PO SCH (09:17)
[2020-06-05] MEDS: NFT: Multivitamins/Mins AREDS2 (NF) CAP PO SCH (09:17)
[2020-06-05] MEDS: Vitamin THERAPEUTIC TAB PO SCH (09:18)
[2020-06-05] MEDS: Trospium 20 mg TAB (NF) PO SCH (09:18)
[2020-06-05 09:34] VITALS: BP 151/82
== END 2020-06-05 13:00 | DRG 66 ==
LOC: MEDTELE 11:00 → ED 11:00 → MEDTELE 16:21
PROVIDERS: ADMIT Internal Medicine; ATTEND Student in an Organized Health Care Education/Training Program

== ENCOUNTER 2020-06-05 09:02 | Inpatient (IN) ==
[2020-06-05] MEDS ORDERED: Senna TAB 8.6 mg TAB PO PRN (16:56)
[2020-06-05] MEDS: Trospium 20 mg TAB (NF) PO SCH (20:15)
[2020-06-06] MEDS: Multivitamins/Minerals TAB PO SCH (08:15)
[2020-06-06] MEDS: Aspirin EC 81 mg TAB.EC (enteric coated) PO SCH (08:15)
[2020-06-06] MEDS: Trospium 20 mg TAB (NF) PO SCH ×2 (08:18→20:22)
[2020-06-07 06:29] LABS: ABS Basophils 0.1 10^3/ul (0-0.2); ABS Eosinophils 0.2 10^3/ul (0-0.6); ABS Lymphocytes 2.3 10^3/ul (1.0-4.8); ABS Neutrophils 6.2 10^3/ul (1.5-7.7); Eosinophil % 1.8 %; Hematocrit 53 % (42-52); Hemoglobin 17.6 g/dL (14.0-18.0); Lymphocyte % 23.2 %; Mean Corpuscular HGB Conc 34 g/dL (31-36); Mean Corpuscular Hemoglobin 31 pg (27-31); Mean Corpuscular Volume 92 fL (80-94); Mean Platelet Volume 9.2 fL (7.4-10.4); Platelet Count 211 10^3/uL (150-450); Red Blood Count 5.73 10^6 /uL (4.18-5.48); Red Cell Distribution Width 16 % (10-15); White Blood Count 9.7 10^3/uL (3.5-10.8)
[2020-06-07 06:46] LABS: Albumin 3.9 g/dL (3.2-5.2); Albumin/Globulin Ratio 1.3 (1-3); Calcium 10.2 mg/dL (8.6-10.3); EGFR African American 105.3 (>60); EGFR Non-African American 87.1 (>60); Globulin 2.9 g/dL (2-4); Potassium 4.4 mmol/L (3.5-5.0); Total Bilirubin 0.7 mg/dL (0.2-1.0); Total Protein 6.8 g/dL (6.4-8.9)
[2020-06-07] MEDS: Multivitamins/Minerals TAB PO SCH (07:36)
[2020-06-07] MEDS: Aspirin EC 81 mg TAB.EC (enteric coated) PO SCH (07:36)
[2020-06-07] MEDS: Trospium 20 mg TAB (NF) PO SCH ×2 (07:37→20:10)
[2020-06-08 05:47] VITALS: BP 142/90
[2020-06-08] MEDS: Aspirin EC 81 mg TAB.EC (enteric coated) PO SCH (08:41)
[2020-06-08] MEDS: Multivitamins/Minerals TAB PO SCH (08:42)
[2020-06-08] MEDS: Trospium 20 mg TAB (NF) PO SCH (08:46)
== END 2020-06-08 12:20 | disposition home health service (06) | DRG 58 ==
LOC: PMRU 13:01
PROVIDERS: ADMIT Physical Medicine & Rehabilitation; ATTEND Physical Medicine & Rehabilitation

== ENCOUNTER 2021-09-10 10:31 | Inpatient (IN) ==
[2021-09-10 11:20] LABS: ABS Basophils 0.1 10^3/ul (0-0.2); ABS Monocytes 1.2 10^3/ul (0-0.8); ABS Neutrophils 11.6 10^3/ul (1.5-7.7); Eosinophil % 0.1 %; Hematocrit 48 % (42-52); Hemoglobin 14.9 g/dL (14.0-18.0); Lymphocyte % 7.1 %; Mean Corpuscular HGB Conc 31 g/dL (31-36); Mean Corpuscular Hemoglobin 26 pg (27-31); Mean Corpuscular Volume 84 fL (80-94); Mean Platelet Volume 8.7 fL (7.4-10.4); Platelet Count 290 10^3/uL (150-450); Red Blood Count 5.65 10^6 /uL (4.18-5.48); Red Cell Distribution Width 17 % (10-15); White Blood Count 13.8 10^3/uL (3.5-10.8)
[2021-09-10 11:37] LABS: INR 1.86 (0.86-1.15)
[2021-09-10 12:01] LABS: Urine Appearance Cloudy; Urine Bilirubin Negative (Negative); Urine Blood Negative (Negative); Urine Color Yellow; Urine Glucose 1+(50 mg/dL) (Negative); Urine Ketones Negative (Negative); Urine Nitrite Negative (Negative); Urine Protein 1+(30 mg/dL) (Negative); Urine Specific Gravity 1.019 (1.002-1.030); Urine Urobilinogen Negative (Negative)
[2021-09-10 12:09] LABS: Urine Bacteria Absent (Absent); Urine Red Blood Cell Trace(0-2/hpf) (Absent); Urine White Blood Cell Trace(0-5/hpf) (Absent)
[2021-09-10 12:16] LABS: Albumin 3.8 g/dL (3.2-5.2); Albumin/Globulin Ratio 1.2 (1-3); Calcium 10.9 mg/dL (8.6-10.3); Globulin 3.2 g/dL (2-4); Magnesium 2.1 mg/dL (1.9-2.7); Potassium 4.6 mmol/L (3.5-5.0); Total Bilirubin 0.7 mg/dL (0.2-1.0); eGFR CKD-EPI 59.5 (>60)
[2021-09-10] MEDS ORDERED: Iohexol 300 (CONTRAST) 10 ML SDV IV ONE (12:20)
[2021-09-10] MEDS ORDERED: NS 0.9% 1000 ml BAG 1,000 ML IV ONE (12:55)
[2021-09-10 13:56] LABS: High Sensitivity Troponin 1 Hr 20 pg/mL (<20)
[2021-09-10] MEDS ORDERED: Piperacillin/Tazobac ADVAN 3.375 GM in NS 0.9% 100 ml BAG 100 ML IV ONE (16:40)
[2021-09-10] MEDS ORDERED: Dextrose 50% Syringe 50 ml 25 GM/50 ML SYRINGE IV PUSH PRN (16:42)
[2021-09-10] MEDS ORDERED: Zosyn per Pharmacy NOTE FOLLOW UP SCH (17:00)
[2021-09-10 19:20] LABS: Hematocrit 44 % (42-52); Hemoglobin 13.9 g/dL (14.0-18.0); Mean Corpuscular HGB Conc 32 g/dL (31-36); Mean Corpuscular Hemoglobin 27 pg (27-31); Mean Corpuscular Volume 84 fL (80-94); Platelet Count 262 10^3/uL (150-450); Red Blood Count 5.25 10^6 /uL (4.18-5.48); Red Cell Distribution Width 17 % (10-15); White Blood Count 12.5 10^3/uL (3.5-10.8)
[2021-09-10 19:46] LABS: C Reactive Protein 29.48 mg/L (<8.01); HDL Cholesterol 33.8 mg/dL
[2021-09-10] MEDS ORDERED: ZOSYN 3.375 GM x ONE DOSE over 30 miuntes IV (20:00)
[2021-09-11] MEDS: ZOSYN 3.375 GM Q8H per EXTENDED INFUSION IV SCH ×3 (02:08→16:08)
[2021-09-11 05:42] LABS: Hematocrit 44 % (42-52); Hemoglobin 13.9 g/dL (14.0-18.0); Mean Corpuscular HGB Conc 32 g/dL (31-36); Mean Corpuscular Hemoglobin 27 pg (27-31); Mean Corpuscular Volume 85 fL (80-94); Mean Platelet Volume 8.9 fL (7.4-10.4); Platelet Count 290 10^3/uL (150-450); Red Blood Count 5.18 10^6 /uL (4.18-5.48); Red Cell Distribution Width 17 % (10-15)
[2021-09-11 05:50] LABS: ABS Basophils 0.1 10^3/ul (0-0.2); ABS Eosinophils 0.2 10^3/ul (0-0.6); ABS Lymphocytes 1.6 10^3/ul (1.0-4.8); ABS Monocytes 1.6 10^3/ul (0-0.8); ABS Neutrophils 9.6 10^3/ul (1.5-7.7); Eosinophil % 1.3 %; Lymphocyte % 12.4 %
[2021-09-11 06:00] LABS: Calcium 10.3 mg/dL (8.6-10.3); Magnesium 2.1 mg/dL (1.9-2.7); Potassium 4.8 mmol/L (3.5-5.0)
[2021-09-11] MEDS ORDERED: Perflutren Lipid Microsphere 3 ML VIAL ONE (08:27)
[2021-09-11] MEDS: Aspirin EC 81 mg TAB.EC (enteric coated) PO SCH (09:55)
[2021-09-11 12:38] LABS: TSH Ultra Thyroid Stim Horm 1.04 mcIU/mL (0.34-5.60)
[2021-09-12] MEDS: ZOSYN 3.375 GM Q8H per EXTENDED INFUSION IV SCH ×4 (00:23→23:14)
[2021-09-12 06:45] LABS: ABS Basophils 0.1 10^3/ul (0-0.2); ABS Eosinophils 0.3 10^3/ul (0-0.6); ABS Lymphocytes 1.3 10^3/ul (1.0-4.8); ABS Neutrophils 7.4 10^3/ul (1.5-7.7); Hematocrit 44 % (42-52); Hemoglobin 13.9 g/dL (14.0-18.0); Lymphocyte % 12.8 %; Mean Corpuscular HGB Conc 32 g/dL (31-36); Mean Corpuscular Hemoglobin 27 pg (27-31); Mean Corpuscular Volume 85 fL (80-94); Mean Platelet Volume 8.6 fL (7.4-10.4); Platelet Count 263 10^3/uL (150-450); Red Blood Count 5.17 10^6 /uL (4.18-5.48); Red Cell Distribution Width 17 % (10-15)
[2021-09-12 07:23] LABS: Calcium 10.2 mg/dL (8.6-10.3); Magnesium 1.9 mg/dL (1.9-2.7); Potassium 4.2 mmol/L (3.5-5.0); eGFR CKD-EPI 85.2 (>60)
[2021-09-12] MEDS: Aspirin EC 81 mg TAB.EC (enteric coated) PO SCH (08:16)
[2021-09-13] MEDS: ZOSYN 3.375 GM Q8H per EXTENDED INFUSION IV SCH (05:48)
[2021-09-13 06:11] LABS: CO2 Carbon Dioxide 24 mmol/L (22-32); Calcium 9.5 mg/dL (8.6-10.3); Chloride 107 mmol/L (101-111); Sodium 139 mmol/L (135-145)
[2021-09-13 06:17] LABS: Blood Urea Nitrogen 14 mg/dL (6-24); Glucose 160 mg/dL (70-100); eGFR CKD-EPI 90.5 (>60)
[2021-09-13 06:28] LABS: ABS Basophils 0.1 10^3/ul (0-0.2); ABS Eosinophils 0.3 10^3/ul (0-0.6); ABS Lymphocytes 1.6 10^3/ul (1.0-4.8); ABS Neutrophils 6.6 10^3/ul (1.5-7.7); Eosinophil % 3.2 %; Hematocrit 44 % (42-52); Hemoglobin 13.9 g/dL (14.0-18.0); Lymphocyte % 16.2 %; Mean Corpuscular HGB Conc 32 g/dL (31-36); Mean Corpuscular Hemoglobin 27 pg (27-31); Mean Corpuscular Volume 85 fL (80-94); Mean Platelet Volume 8.7 fL (7.4-10.4); Platelet Count 269 10^3/uL (150-450); Red Blood Count 5.17 10^6 /uL (4.18-5.48); Red Cell Distribution Width 17 % (10-15); White Blood Count 9.6 10^3/uL (3.5-10.8)
[2021-09-13 06:57] LABS: Anion Gap 8 mmol/L (2-11)
[2021-09-13] MEDS: Aspirin EC 81 mg TAB.EC (enteric coated) PO SCH (10:21)
[2021-09-13 15:20] VITALS: BP 147/93
== END 2021-09-13 18:47 | disposition home health service (06) | DRG 871 ==
LOC: EDHOLD 10:31 → ED 10:31 → EDHOLD 17:57 → MEDTELE 18:20 → SUATTDRO 09-11 12:34
PROVIDERS: ADMIT Internal Medicine; ATTEND Internal Medicine

== ENCOUNTER 2023-05-23 15:46 | Inpatient (IN) ==
[2023-05-23] MEDS: Acetaminophen IV 1 GM/100ML 1,000 MG/100 ML BAG IV ONE (16:52)
[2023-05-23] MEDS: Morphine 4 MG/ML VIAL (1 ml) IV ONE ×2 (16:52→17:26)
[2023-05-23 17:27] LABS: Hematocrit 35.4 % (38-53); Hemoglobin 10.5 g/dL (13.2-16.3); Mean Corpuscular Hemoglobin 19.7 pg (27-33); Mean Corpuscular Hgb Conc 29.6 g/dL (31-36); Mean Corpuscular Volume 66.5 fL (80-97); Mean Platelet Volume 8.8 fL (7.5-11.2); Platelet Count 429 10^3/uL (150-450); Red Blood Count 5.33 10^6/uL (4.06-5.63); Red Cell Distribution Width 19.2 % (12-17); White Blood Count 11.2 10^3/uL (3.6-10.2)
[2023-05-23 17:34] LABS: INR 1.38 (0.83-1.13)
[2023-05-23 18:08] LABS: ABS Basophils 0.1 10^3/uL (0.0-0.1); ABS Eosinophils 0.3 10^3/uL (0.0-0.5); ABS Lymphocytes 1.8 10^3/uL (1.0-4.8); ABS Monocytes 0.9 10^3/uL (0.0-1.1); ABS Neutrophils 8.2 10^3/uL (1.5-7.6); ABS Nucleated RBC 0.01 10^3/ul; Anisocytosis 3+; Eosinophil % 2.2 %; Lymphocyte % 15.6 %; Microcytosis 2+; Nucleated Red Blood Cells % 0.1 %/100WBC (0.0-0.8); Polychromasia 1+
[2023-05-23 18:18] LABS: ALT 33 U/L (7-52); Albumin/Globulin Ratio 1.2 (1-3); Alkaline Phosphatase 108 U/L (35-149); Anion Gap 6 mmol/L (2-16); Blood Urea Nitrogen 20 mg/dL (6-24); CO2 Carbon Dioxide 25 mmol/L (22-32); Calcium 9.9 mg/dL (8.6-10.3); Chloride 101 mmol/L (101-111); Creatinine, Serum 0.78 mg/dL (0.67-1.17); Globulin 3.4 g/dL (2-4); Glucose 182 mg/dL (70-100); Sodium 132 mmol/L (135-145); Total Bilirubin 0.4 mg/dL (0.2-1.0); Total Protein 7.4 g/dL (6.4-8.9); eGFR CKD-EPI 86.3 (>60)
[2023-05-23] MEDS ORDERED: Polyethylene Glycol 3350 17 GM PACKET PO PRN (20:28)
[2023-05-23] MEDS ORDERED: Magnesium Hydroxide LIQ 30 ML UDC PO PRN (20:28)
[2023-05-23] MEDS ORDERED: Ondansetron 4 mg VIAL 2 MG/ML 2 ml VIAL IV PRN (20:28)
[2023-05-23] MEDS: Morphine 2 MG/ML SYRINGE IV PRN (20:47)
[2023-05-23] MEDS: Enoxaparin 40 MG/0.4 ML SYR SUBCUT SCH (21:55)
[2023-05-24 00:49] LABS: % Iron Saturation 4 % (15-55); .Transferrin 346 mg/dL (203-362); AST Redraw 30 U/L (13-39); Iron < 20 ug/dL (50-212); Potassium Redraw 5.5 mmol/L (3.5-5.0); Total Iron Binding Capacity 484 mcg/dL (250-450); Unsaturated Iron Binding 464 ug/dL
[2023-05-24 01:13] LABS: Folate > 20.00 ng/mL (5.90-24.80)
[2023-05-24 01:14] LABS: Vitamin B12 645 pg/mL (180-914)
[2023-05-24 01:47] LABS: Ferritin 7.4 ng/mL (24-336)
[2023-05-24] MEDS: Patiromer POWDER 8.4 GM PAK PO SCH (02:13)
[2023-05-24 07:43] LABS: Hematocrit 36.1 % (38-53); Hemoglobin 10.5 g/dL (13.2-16.3); Mean Corpuscular Hemoglobin 19.4 pg (27-33); Mean Corpuscular Volume 66.7 fL (80-97); Mean Platelet Volume 8.3 fL (7.5-11.2); Platelet Count 370 10^3/uL (150-450); Red Cell Distribution Width 18.9 % (12-17); White Blood Count 12.9 10^3/uL (3.6-10.2)
[2023-05-24 07:52] LABS: Calcium 10.1 mg/dL (8.6-10.3); Creatinine, Serum 0.86 mg/dL (0.67-1.17); Potassium 5.1 mmol/L (3.5-5.0); eGFR CKD-EPI 83.8 (>60)
[2023-05-24] MEDS: Empagliflozin 25 MG TAB PO SCH (08:28)
[2023-05-24] MEDS: Vitamin THERAPEUTIC TAB PO SCH (08:28)
[2023-05-24] MEDS: Senna TAB 8.6 mg TAB PO SCH (08:29)
[2023-05-24] MEDS: Iron Sucrose 20 MG/ML 5 ML VIAL IV PUSH SCH (08:30)
[2023-05-24 08:34] LABS: ABS Basophils 0.2 10^3/uL (0.0-0.1); ABS Eosinophils 0.2 10^3/uL (0.0-0.5); ABS Lymphocytes 1.7 10^3/uL (1.0-4.8); ABS Monocytes 1.6 10^3/uL (0.0-1.1); ABS Neutrophils 9.3 10^3/uL (1.5-7.6); ABS Nucleated RBC 0.01 10^3/ul; Eosinophil % 1.9 %; Lymphocyte % 12.8 %; Nucleated Red Blood Cells % 0.1 %/100WBC (0.0-0.8)
[2023-05-24] MEDS: Aspirin EC 81 mg TAB.EC (enteric coated) PO SCH (08:52)
[2023-05-24] MEDS: Nystatin TOP POWDER 15 GM BTL TOPICAL SCH (11:20)
[2023-05-24] MEDS ORDERED: Dextrose 50% Syringe 50 ml 25 GM/50 ML SYRINGE IV PUSH PRN (12:21)
[2023-05-24] MEDS ORDERED: Morphine 2 MG/ML SYRINGE IV PRN (14:45)
[2023-05-24] MEDS: Iodixanol (CONTRAST) 320 MG/ML 100 ML SDV IV ONE (15:15)
[2023-05-24 15:29] LABS: Urine Appearance Clear; Urine Bacteria Absent /HPF (Absent); Urine Bilirubin Negative (Negative); Urine Blood Negative (Negative); Urine Color Light-Yellow; Urine Glucose 4+ (>=1000 mg/dL) (Negative); Urine Ketones Negative (Negative); Urine Nitrite Negative (Negative); Urine Protein Negative (Negative); Urine Red Blood Cell 1+(3-5/hpf) /HPF (0-Trace); Urine Specific Gravity 1.027 (1.002-1.030); Urine Squamous Epithelial Cell Present /HPF (Absent); Urine Urobilinogen Negative (Negative); Urine White Blood Cell 1+(6-10/hpf) /HPF (0-Trace)
[2023-05-24] MEDS: Furosemide 40 mg/4 ml IV VIAL IV ONE (16:44)
[2023-05-24 17:01] LABS: PCO2 Arterial 55 mmHg (35-45); PO2 Arterial 60 mmHg (80-100)
[2023-05-24] MEDS: Naloxone 0.4 mg VIAL 0.4 mg/ml 1 ml VIAL IV PUSH ONE ×2 (18:25→18:41)
[2023-05-24] MEDS: Acetaminophen IV 1 GM/100ML 1,000 MG/100 ML BAG IV SCH ×2 (23:08→23:45)
[2023-05-25] MEDS: Albuterol/Ipratropium NEB.SOL (2.5/0.5 MG) 3 ML NEB.SOLN INH SCH (01:22)
[2023-05-25 06:07] LABS: ABS Basophils 0.1 10^3/uL (0.0-0.1); ABS Eosinophils 0.2 10^3/uL (0.0-0.5); ABS Lymphocytes 1.5 10^3/uL (1.0-4.8); ABS Monocytes 2.3 10^3/uL (0.0-1.1); ABS Neutrophils 11.1 10^3/uL (1.5-7.6); ABS Nucleated RBC 0.04 10^3/ul; Eosinophil % 1.6 %; Hematocrit 36.7 % (38-53); Hemoglobin 10.6 g/dL (13.2-16.3); Lymphocyte % 9.7 %; Mean Corpuscular Hemoglobin 19.5 pg (27-33); Mean Corpuscular Volume 67.4 fL (80-97); Mean Platelet Volume 8.4 fL (7.5-11.2); Nucleated Red Blood Cells % 0.3 %/100WBC (0.0-0.8); Platelet Count 387 10^3/uL (150-450); Red Blood Count 5.44 10^6/uL (4.06-5.63); Red Cell Distribution Width 19.1 % (12-17); White Blood Count 15.3 10^3/uL (3.6-10.2)
[2023-05-25 06:37] LABS: Calcium 10.4 mg/dL (8.6-10.3); Creatinine, Serum 1.33 mg/dL (0.67-1.17); Magnesium 2.6 mg/dL (1.9-2.7); Potassium 4.7 mmol/L (3.5-5.0); eGFR CKD-EPI 51.7 (>60)
[2023-05-25] MEDS ORDERED: Propofol 10 MG/ML 20 ML BTL ONE (07:25)
[2023-05-25] MEDS ORDERED: Lidocaine 2% PF 5 ML VIAL ONE ×2 (07:25→14:20)
[2023-05-25] MEDS ORDERED: Rocuronium 50 mg VIAL 10 mg/ml 5 ml VIAL (50 mg) ONE (07:25)
[2023-05-25] MEDS ORDERED: fentaNYL 100 mcg/2 ml 50 MCG/ML VIAL ONE ×2 (07:25→12:19)
[2023-05-25] MEDS ORDERED: Phenylephrine IV 10 MG/ML 1 ml VIAL ONE (07:26)
[2023-05-25] MEDS ORDERED: Bupivacaine 0.25% SDV 30 ML ONE (12:06)
[2023-05-25] MEDS ORDERED: Propofol 10 mg/ml 100 ML BTL 1,000 MG/100 ML BTL ONE (12:18)
[2023-05-25] MEDS ORDERED: HYDROmorphone 1 MG/1 ML SYRINGE IV PRN (12:33)
[2023-05-25] MEDS ORDERED: fentaNYL 100 mcg/2 ml 50 MCG/ML VIAL IV PRN (12:33)
[2023-05-25] MEDS ORDERED: Naloxone 0.4 mg VIAL 0.4 mg/ml 1 ml VIAL IV PRN (12:33)
[2023-05-25] MEDS ORDERED: Ondansetron 4 mg VIAL 2 MG/ML 2 ml VIAL IV PRN (12:33)
[2023-05-25] MEDS ORDERED: ceFAZolin VIAL VIAL ONE ×2 (12:44)
[2023-05-25] MEDS ORDERED: Dexamethasone IV 4 MG/ML VIAL 1 ml VIAL ONE (13:38)
[2023-05-25] MEDS ORDERED: Dextrose 50% Syringe 50 ml 25 GM/50 ML SYRINGE IV PUSH PRN (15:54)
[2023-05-25] MEDS ORDERED: Magnesium Hydroxide LIQ 30 ML UDC PO PRN (17:36)
[2023-05-25] MEDS ORDERED: Senna TAB 8.6 mg TAB PO PRN (17:36)
[2023-05-25] MEDS ORDERED: Polyethylene Glycol 3350 17 GM PACKET PO PRN (17:36)
[2023-05-25 19:20] LABS: Hematocrit 37.6 % (38-53); Hemoglobin 10.7 g/dL (13.2-16.3); Mean Platelet Volume 8.4 fL (7.5-11.2); Platelet Count 386 10^3/uL (150-450)
[2023-05-25 19:28] LABS: Albumin 3.9 g/dL (3.2-5.2); Albumin/Globulin Ratio 1.1 (1-3); Calcium 10.3 mg/dL (8.6-10.3); Creatinine, Serum 1.33 mg/dL (0.67-1.17); Globulin 3.6 g/dL (2-4); Total Bilirubin 0.3 mg/dL (0.2-1.0); Total Protein 7.5 g/dL (6.4-8.9); eGFR CKD-EPI 51.7 (>60)
[2023-05-25] MEDS: ceFAZolin 1 GM ADVAN 1 GM in NS 0.9% 50 ML 50 ML IVPB SCH (21:25)
[2023-05-25] MEDS: Magnesium Hydroxide LIQ 30 ML UDC PO SCH (21:29)
[2023-05-26 06:20] LABS: ABS Basophils 0.3 10^3/uL (0.0-0.1); ABS Monocytes 1.3 10^3/uL (0.0-1.1); ABS Neutrophils 13.7 10^3/uL (1.5-7.6); ABS Nucleated RBC 0.03 10^3/ul; Hemoglobin 10.1 g/dL (13.2-16.3); Lymphocyte % 6.2 %; Mean Corpuscular Hemoglobin 19.8 pg (27-33); Mean Corpuscular Hgb Conc 29.6 g/dL (31-36); Mean Corpuscular Volume 66.8 fL (80-97); Mean Platelet Volume 8.4 fL (7.5-11.2); Nucleated Red Blood Cells % 0.2 %/100WBC (0.0-0.8); Platelet Count 378 10^3/uL (150-450); Red Blood Count 5.09 10^6/uL (4.06-5.63); Red Cell Distribution Width 19.2 % (12-17); White Blood Count 16.3 10^3/uL (3.6-10.2)
[2023-05-26 06:37] LABS: Calcium 9.8 mg/dL (8.6-10.3); Creatinine, Serum 1.18 mg/dL (0.67-1.17); Magnesium 2.5 mg/dL (1.9-2.7); Potassium 4.4 mmol/L (3.5-5.0); eGFR CKD-EPI 59.7 (>60)
[2023-05-26 15:17] LABS: Urine Appearance Clear; Urine Bacteria Absent /HPF (Absent); Urine Bilirubin Negative (Negative); Urine Blood 2+ (Negative); Urine Color Yellow; Urine Glucose 4+ (>=1000 mg/dL) (Negative); Urine Ketones Negative (Negative); Urine Nitrite Negative (Negative); Urine Protein Trace (Negative); Urine Red Blood Cell 3+(>10/hpf) /HPF (0-Trace); Urine Squamous Epithelial Cell Present /HPF (Absent); Urine Urobilinogen Negative (Negative); Urine White Blood Cell 2+(11-20/hpf) /HPF (0-Trace)
[2023-05-26] MEDS: DOXYcycline 100 MG in NS 0.9% 250 ml 250 ML IVPB SCH (16:32)
[2023-05-27 06:23] LABS: ABS Basophils 0.1 10^3/uL (0.0-0.1); ABS Eosinophils 0.3 10^3/uL (0.0-0.5); ABS Lymphocytes 1.4 10^3/uL (1.0-4.8); ABS Neutrophils 11.6 10^3/uL (1.5-7.6); ABS Nucleated RBC 0.08 10^3/ul; Hematocrit 32.8 % (38-53); Hemoglobin 9.5 g/dL (13.2-16.3); Mean Corpuscular Hemoglobin 19.8 pg (27-33); Mean Corpuscular Volume 68.2 fL (80-97); Mean Platelet Volume 8.7 fL (7.5-11.2); Nucleated Red Blood Cells % 0.5 %/100WBC (0.0-0.8); Platelet Count 379 10^3/uL (150-450); Red Blood Count 4.81 10^6/uL (4.06-5.63); Red Cell Distribution Width 19.1 % (12-17); White Blood Count 15.4 10^3/uL (3.6-10.2)
[2023-05-27 06:30] LABS: Calcium 9.4 mg/dL (8.6-10.3); Creatinine, Serum 1.02 mg/dL (0.67-1.17); Potassium 4.4 mmol/L (3.5-5.0); eGFR CKD-EPI 71.1 (>60)
[2023-05-27] MEDS ORDERED: Sulfur Hexaflouride MICROSPHR 25 MG VIAL ONE (16:28)
[2023-05-28 10:33] LABS: Hematocrit 35.7 % (38-53); Hemoglobin 10.1 g/dL (13.2-16.3); Mean Corpuscular Hemoglobin 20.1 pg (27-33); Mean Corpuscular Hgb Conc 28.3 g/dL (31-36); Mean Corpuscular Volume 71.2 fL (80-97); Mean Platelet Volume 8.2 fL (7.5-11.2); Platelet Count 392 10^3/uL (150-450); Red Blood Count 5.02 10^6/uL (4.06-5.63); Red Cell Distribution Width 19.3 % (12-17)
[2023-05-28] MEDS ORDERED: Albuterol HFA INHALER 8 gm MDI INH PRN (10:38)
[2023-05-28 10:47] LABS: Calcium 9.5 mg/dL (8.6-10.3); Creatinine, Serum 0.77 mg/dL (0.67-1.17); Potassium 4.7 mmol/L (3.5-5.0); eGFR CKD-EPI 86.6 (>60)
[2023-05-28 11:37] LABS: ABS Basophils 0.1 10^3/uL (0.0-0.1); ABS Eosinophils 0.6 10^3/uL (0.0-0.5); ABS Lymphocytes 1.5 10^3/uL (1.0-4.8); ABS Monocytes 1.4 10^3/uL (0.0-1.1); ABS Neutrophils 9.5 10^3/uL (1.5-7.6); ABS Nucleated RBC 0.04 10^3/ul; Anisocytosis 2+; Eosinophil % 4.9 %; Hypochromasia 2+; Lymphocyte % 11.3 %; Macrocytosis 1+; Microcytosis 1+; Nucleated Red Blood Cells % 0.3 %/100WBC (0.0-0.8); Polychromasia 1+
[2023-05-29] MEDS: Furosemide 40 mg/4 ml IV VIAL IV SLOW PU ONE (02:37)
[2023-05-29 10:29] LABS: Hematocrit 37.5 % (38-53); Hemoglobin 10.6 g/dL (13.2-16.3); Mean Corpuscular Hemoglobin 20.5 pg (27-33); Mean Corpuscular Hgb Conc 28.3 g/dL (31-36); Mean Corpuscular Volume 72.1 fL (80-97); Mean Platelet Volume 7.9 fL (7.5-11.2); Platelet Count 374 10^3/uL (150-450); Red Cell Distribution Width 19.4 % (12-17); White Blood Count 11.6 10^3/uL (3.6-10.2)
[2023-05-29 11:16] LABS: ABS Basophils 0.1 10^3/uL (0.0-0.1); ABS Eosinophils 0.5 10^3/uL (0.0-0.5); ABS Lymphocytes 1.5 10^3/uL (1.0-4.8); ABS Neutrophils 8.5 10^3/uL (1.5-7.6); ABS Nucleated RBC 0.07 10^3/ul; Anisocytosis 2+; Eosinophil % 4.1 %; Hypochromasia 3+; Lymphocyte % 12.9 %; Nucleated Red Blood Cells % 0.6 %/100WBC (0.0-0.8); Polychromasia 3+
[2023-05-29 11:17] LABS: Calcium 9.7 mg/dL (8.6-10.3); Creatinine, Serum 0.75 mg/dL (0.67-1.17); Magnesium 1.8 mg/dL (1.9-2.7); Potassium 4.6 mmol/L (3.5-5.0); eGFR CKD-EPI 87.3 (>60)
[2023-05-29] MEDS: Iodixanol (CONTRAST) 320 MG/ML 100 ML SDV IV ONE ×2 (12:10→15:45)
[2023-05-29] MEDS: Magnesium Sulfate 2 gm BAG 2 GM/50 ML BAG IVPB ONE (17:06)
[2023-05-30 08:47] LABS: Hematocrit 36.5 % (38-53); Hemoglobin 10.6 g/dL (13.2-16.3); Mean Corpuscular Hemoglobin 21.2 pg (27-33); Mean Corpuscular Volume 73.3 fL (80-97); Mean Platelet Volume 8.2 fL (7.5-11.2); Platelet Count 373 10^3/uL (150-450); Red Blood Count 4.98 10^6/uL (4.06-5.63); Red Cell Distribution Width 19.6 % (12-17); White Blood Count 11.9 10^3/uL (3.6-10.2)
[2023-05-30 09:15] LABS: ABS Basophils 0.1 10^3/uL (0.0-0.1); ABS Eosinophils 0.5 10^3/uL (0.0-0.5); ABS Monocytes 1.1 10^3/uL (0.0-1.1); ABS Neutrophils 8.2 10^3/uL (1.5-7.6); ABS Nucleated RBC 0.05 10^3/ul; Eosinophil % 4.2 %; Lymphocyte % 16.5 %; Nucleated Red Blood Cells % 0.4 %/100WBC (0.0-0.8)
[2023-05-30 09:16] LABS: Anisocytosis 2+; Hypochromasia 3+; Microcytosis 2+; Polychromasia 2+
[2023-05-30 09:37] LABS: Calcium 9.4 mg/dL (8.6-10.3); Creatinine, Serum 0.73 mg/dL (0.67-1.17); Potassium 5.2 mmol/L (3.5-5.0); eGFR CKD-EPI 88.1 (>60)
[2023-05-31 05:35] LABS: Hematocrit 36.5 % (38-53); Hemoglobin 10.5 g/dL (13.2-16.3); Mean Corpuscular Hemoglobin 21.5 pg (27-33); Mean Corpuscular Hgb Conc 28.7 g/dL (31-36); Mean Corpuscular Volume 74.9 fL (80-97); Platelet Count 271 10^3/uL (150-450); Red Blood Count 4.88 10^6/uL (4.06-5.63); Red Cell Distribution Width 19.7 % (12-17); White Blood Count 10.9 10^3/uL (3.6-10.2)
[2023-05-31 06:09] LABS: Creatinine, Serum 0.58 mg/dL (0.67-1.17); Potassium 4.7 mmol/L (3.5-5.0); eGFR CKD-EPI 94.4 (>60)
[2023-05-31 06:14] LABS: ABS Basophils 0.1 10^3/uL (0.0-0.1); ABS Eosinophils 0.4 10^3/uL (0.0-0.5); ABS Lymphocytes 1.5 10^3/uL (1.0-4.8); ABS Monocytes 1.1 10^3/uL (0.0-1.1); ABS Neutrophils 7.8 10^3/uL (1.5-7.6); ABS Nucleated RBC 0.05 10^3/ul; Anisocytosis 3+; Eosinophil % 3.7 %; Hypochromasia 2+; Lymphocyte % 14.1 %; Nucleated Red Blood Cells % 0.4 %/100WBC (0.0-0.8); Polychromasia 2+
[2023-06-01 05:54] LABS: Hematocrit 34.8 % (38-53); Hemoglobin 10.3 g/dL (13.2-16.3); Mean Corpuscular Hemoglobin 21.8 pg (27-33); Mean Corpuscular Hgb Conc 29.7 g/dL (31-36); Mean Corpuscular Volume 73.4 fL (80-97); Platelet Count 323 10^3/uL (150-450); Red Blood Count 4.74 10^6/uL (4.06-5.63); Red Cell Distribution Width 19.3 % (12-17); White Blood Count 11.4 10^3/uL (3.6-10.2)
[2023-06-01 06:09] LABS: ABS Basophils 0.2 10^3/uL (0.0-0.1); ABS Eosinophils 0.5 10^3/uL (0.0-0.5); ABS Lymphocytes 1.7 10^3/uL (1.0-4.8); ABS Monocytes 1.2 10^3/uL (0.0-1.1); ABS Neutrophils 7.9 10^3/uL (1.5-7.6); ABS Nucleated RBC 0.02 10^3/ul; Eosinophil % 4.3 %; Lymphocyte % 15.1 %; Nucleated Red Blood Cells % 0.1 %/100WBC (0.0-0.8)
[2023-06-01 06:43] LABS: Calcium 9.1 mg/dL (8.6-10.3); Creatinine, Serum 0.64 mg/dL (0.67-1.17); Magnesium 1.9 mg/dL (1.9-2.7); Potassium 4.8 mmol/L (3.5-5.0); eGFR CKD-EPI 91.6 (>60)
[2023-06-02 09:33] VITALS: BP 132/61
== END 2023-06-02 12:25 | DRG 521 ==
LOC: ED 15:46 → EDHOLD 19:21 → SUATTDRO 19:21 → MED 21:28 → SSU 05-25 17:54
PROVIDERS: ADMIT Internal Medicine; ATTEND Hospitalist

== ENCOUNTER 2023-07-14 12:03 | Observation (INO) ==
[2023-07-14 12:37] LABS: Venous Bicarbonate HCO3 27.9 mmol/L (24-28)
[2023-07-14 12:52] LABS: Hematocrit 47.3 % (38-53); Hemoglobin 14.6 g/dL (13.2-16.3); Mean Corpuscular Hemoglobin 25.5 pg (27-33); Mean Corpuscular Hgb Conc 30.8 g/dL (31-36); Mean Corpuscular Volume 82.8 fL (80-97); Mean Platelet Volume 8.5 fL (7.5-11.2); Platelet Count 337 10^3/uL (150-450); Red Blood Count 5.72 10^6/uL (4.06-5.63); Red Cell Distribution Width 29.4 % (12-17); White Blood Count 9.8 10^3/uL (3.6-10.2)
[2023-07-14 13:30] LABS: Albumin 4.1 g/dL (3.2-5.2); Albumin/Globulin Ratio 1.4 (1-3); Calcium 10.4 mg/dL (8.6-10.3); Creatinine, Serum 0.85 mg/dL (0.67-1.17); Potassium 4.5 mmol/L (3.5-5.0); Total Bilirubin 0.3 mg/dL (0.2-1.0); Total Protein 7.1 g/dL (6.4-8.9); eGFR CKD-EPI 84.1 (>60)
[2023-07-14 14:07] LABS: Urine Appearance Clear; Urine Bilirubin Negative (Negative); Urine Blood Negative (Negative); Urine Color Yellow; Urine Glucose 4+ (>=1000 mg/dL) (Negative); Urine Ketones Negative (Negative); Urine Nitrite Negative (Negative); Urine Protein Negative (Negative); Urine Urobilinogen Negative (Negative)
[2023-07-14] MEDS: Iodixanol (CONTRAST) 320 MG/ML 100 ML SDV IV ONE (16:27)
[2023-07-14 19:06] LABS: PCO2 Arterial 53 mmHg (35-45); PO2 Arterial 72 mmHg (80-100)
[2023-07-15 06:59] LABS: Hematocrit 45.6 % (38-53); Hemoglobin 14.1 g/dL (13.2-16.3); Mean Corpuscular Hemoglobin 25.9 pg (27-33); Mean Corpuscular Volume 83.4 fL (80-97); Mean Platelet Volume 8.5 fL (7.5-11.2); Platelet Count 274 10^3/uL (150-450); Red Blood Count 5.47 10^6/uL (4.06-5.63); Red Cell Distribution Width 29.5 % (12-17); White Blood Count 8.2 10^3/uL (3.6-10.2)
[2023-07-15 08:21] LABS: ABS Basophils 0.1 10^3/uL (0.0-0.1); ABS Eosinophils 0.5 10^3/uL (0.0-0.5); ABS Lymphocytes 1.7 10^3/uL (1.0-4.8); ABS Monocytes 0.9 10^3/uL (0.0-1.1); ABS Neutrophils 5.1 10^3/uL (1.5-7.6); ABS Nucleated RBC 0.01 10^3/ul; Anisocytosis 2+; Eosinophil % 5.7 %; Lymphocyte % 20.1 %; Macrocytosis 1+; Nucleated Red Blood Cells % 0.1 %/100WBC (0.0-0.8); Polychromasia 1+
[2023-07-15] MEDS: Nystatin TOP POWDER 15 GM BTL TOPICAL SCH (10:03)
[2023-07-15] MEDS: Empagliflozin 25 MG TAB PO SCH (10:03)
[2023-07-15 10:32] LABS: Calcium 9.9 mg/dL (8.6-10.3); Creatinine, Serum 0.77 mg/dL (0.67-1.17); HDL Cholesterol 33.9 mg/dL; Magnesium 2.3 mg/dL (1.9-2.7); Potassium 4.6 mmol/L (3.5-5.0); eGFR CKD-EPI 86.6 (>60)
[2023-07-15 17:10] VITALS: BP 143/74
[2023-07-15 18:19] LABS: TSH Ultra Thyroid Stim Horm 1.3 mcIU/mL (0.34-5.60)
== END 2023-07-15 17:20 | disposition home health service (06) ==
LOC: ED 12:03 → EDHOLD 12:03 → SUATTDRO 19:19 → MED 23:07
PROVIDERS: ADMIT Internal Medicine; ATTEND Internal Medicine

== ENCOUNTER 2023-09-14 13:23 | Inpatient (IN) ==
[2023-09-14 14:15] LABS: ABS Basophils 0.1 10^3/uL (0.0-0.1); ABS Eosinophils 0.1 10^3/uL (0.0-0.5); ABS Lymphocytes 1.4 10^3/uL (1.0-4.8); ABS Monocytes 1.1 10^3/uL (0.0-1.1); ABS Neutrophils 11.2 10^3/uL (1.5-7.6); ABS Nucleated RBC 0.01 10^3/ul; Eosinophil % 0.6 %; Hemoglobin 11.1 g/dL (13.2-16.3); Lymphocyte % 10.2 %; Mean Corpuscular Hemoglobin 24.9 pg (27-33); Mean Corpuscular Hgb Conc 30.8 g/dL (31-36); Mean Platelet Volume 8.7 fL (7.5-11.2); Nucleated Red Blood Cells % 0.1 %/100WBC (0.0-0.8); Platelet Count 431 10^3/uL (150-450); Red Blood Count 4.45 10^6/uL (4.06-5.63); Red Cell Distribution Width 18.3 % (12-17); White Blood Count 13.8 10^3/uL (3.6-10.2)
[2023-09-14] MEDS: Lactated Ringers 1000 ml BAG 1,000 ML IV SCH (14:15)
[2023-09-14 14:31] LABS: Activated Partial Thrombo Time 33.1 seconds (26.0-38.0); INR 1.3 (0.83-1.13)
[2023-09-14] MEDS: Cefepime 2 GM in Dextrose 2 GM/50 ML BAG IV ONE (14:34)
[2023-09-14 14:40] LABS: Urine Appearance Clear; Urine Bilirubin Negative (Negative); Urine Blood Negative (Negative); Urine Color Light-Yellow; Urine Glucose Negative (Negative); Urine Ketones Negative (Negative); Urine Nitrite Negative (Negative); Urine Protein Trace (Negative); Urine Specific Gravity 1.016 (1.002-1.030); Urine Urobilinogen Negative (Negative); Urine pH 5.5 (5.0-8.0)
[2023-09-14 14:49] LABS: Urine Bacteria Absent /HPF (Absent); Urine Red Blood Cell Trace(0-2/hpf) /HPF (0-Trace); Urine Squamous Epithelial Cell Present /HPF (Absent); Urine White Blood Cell Trace(0-5/hpf) /HPF (0-Trace)
[2023-09-14] MEDS: metroNIDAZOLE IV 500 MG/100ML 500 MG/100 ML BAG IVPB ONE (15:04)
[2023-09-14 15:06] LABS: Albumin 4.1 g/dL (3.2-5.2); Albumin/Globulin Ratio 1.2 (1-3); C Reactive Protein 15.05 mg/L (<8.01); Calcium 10.6 mg/dL (8.6-10.3); Creatinine, Serum 2.29 mg/dL (0.67-1.17); Globulin 3.3 g/dL (2-4); Potassium 6.2 mmol/L (3.5-5.0); Total Bilirubin 0.3 mg/dL (0.2-1.0); Total Protein 7.4 g/dL (6.4-8.9); eGFR CKD-EPI 26.8 (>60)
[2023-09-14 15:45] LABS: High Sensitivity Troponin 1 Hr 8 pg/mL (<20)
[2023-09-14] MEDS: NS 0.9% 1000 ml BAG 1,000 ML IV ONE (15:58)
[2023-09-14] MEDS: Vancomycin 1,000 MG in NS 0.9% 250 ml 250 ML IVPB ONE (15:59)
[2023-09-14] MEDS: Furosemide 40 mg/4 ml IV VIAL IV ONE (18:24)
[2023-09-14 18:41] LABS: Urine Appearance Clear; Urine Bilirubin Negative (Negative); Urine Blood Negative (Negative); Urine Color Colorless; Urine Glucose Negative (Negative); Urine Ketones Negative (Negative); Urine Nitrite Negative (Negative); Urine Protein Negative (Negative); Urine Specific Gravity 1.008 (1.002-1.030); Urine Urobilinogen Negative (Negative)
[2023-09-14] MEDS: NS 0.9% 1000 ml BAG 1,000 ML IV SCH (18:41)
[2023-09-14] MEDS ORDERED: Dextrose 50% Syringe 50 ml 25 GM/50 ML SYRINGE IV PUSH PRN (19:23)
[2023-09-14 19:31] LABS: Anion Gap 8 mmol/L (2-16); Blood Urea Nitrogen 39 mg/dL (6-24); CO2 Carbon Dioxide 18 mmol/L (22-32); Calcium 8.9 mg/dL (8.6-10.3); Chloride 104 mmol/L (101-111); Creatinine, Serum 1.92 mg/dL (0.67-1.17); Glucose 99 mg/dL (70-100); Sodium 130 mmol/L (135-145); eGFR CKD-EPI 33.1 (>60)
[2023-09-14] MEDS: Donepezil HCL 10 mg TAB (NF) PO SCH (21:35)
[2023-09-15 02:15] LABS: ABS Basophils 0.2 10^3/uL (0.0-0.1); ABS Eosinophils 0.3 10^3/uL (0.0-0.5); ABS Lymphocytes 1.6 10^3/uL (1.0-4.8); ABS Nucleated RBC 0.01 10^3/ul; Hematocrit 31.6 % (38-53); Lymphocyte % 17.3 %; Mean Corpuscular Hemoglobin 25.3 pg (27-33); Mean Corpuscular Hgb Conc 31.6 g/dL (31-36); Nucleated Red Blood Cells % 0.1 %/100WBC (0.0-0.8); Platelet Count 336 10^3/uL (150-450); Red Blood Count 3.95 10^6/uL (4.06-5.63); White Blood Count 9.1 10^3/uL (3.6-10.2)
[2023-09-15 02:38] LABS: Calcium 9.8 mg/dL (8.6-10.3); Creatinine, Serum 1.68 mg/dL (0.67-1.17); Magnesium 1.9 mg/dL (1.9-2.7); Potassium 4.8 mmol/L (3.5-5.0); eGFR CKD-EPI 38.8 (>60)
[2023-09-15] MEDS ORDERED: Empagliflozin 25 MG TAB PO SCH (09:00)
[2023-09-15] MEDS: Aspirin EC 81 mg TAB.EC (enteric coated) PO SCH (09:07)
[2023-09-15 12:21] LABS: PCO2 Arterial 35 mmHg (35-45); PO2 Arterial 97 mmHg (80-100)
[2023-09-15] MEDS: NF: Multivitamins/Mins AREDS2 (NF) CAP PO SCH (22:38)
[2023-09-16 06:15] LABS: Potassium, Whole Blood 5.1 mmol/L (3.4-4.5)
[2023-09-16] MEDS: Multivitamins/Minerals TAB PO SCH (09:20)
[2023-09-16 09:28] LABS: Calcium 10.4 mg/dL (8.6-10.3); Creatinine, Serum 0.94 mg/dL (0.67-1.17); Magnesium 1.8 mg/dL (1.9-2.7); Potassium 5.2 mmol/L (3.5-5.0)
[2023-09-16] MEDS: SODIUM ZIRCONIUM CYCLOSILICATE 5 GM PACKET PO ONE (11:11)
[2023-09-16] MEDS: SODIUM ZIRCONIUM CYCLOSILICATE 5 GM PACKET PO SCH (11:14)
[2023-09-16] MEDS: Magnesium Sulfate IV 1GM/100ML 1 GM/100 ML BAG IV ONE (14:27)
[2023-09-16 17:26] LABS: Albumin 3.8 g/dL (3.2-5.2); Albumin/Globulin Ratio 1.2 (1-3); Calcium 10.6 mg/dL (8.6-10.3); Creatinine, Serum 0.91 mg/dL (0.67-1.17); Globulin 3.1 g/dL (2-4); Potassium 5.4 mmol/L (3.5-5.0); Total Bilirubin 0.3 mg/dL (0.2-1.0); Total Protein 6.9 g/dL (6.4-8.9); eGFR CKD-EPI 81.1 (>60)
[2023-09-16] MEDS: SODIUM ZIRCONIUM CYCLOSILICATE 10 GM PACKET PO ONE (21:39)
[2023-09-17 07:25] LABS: Calcium 10.3 mg/dL (8.6-10.3); Creatinine, Serum 0.83 mg/dL (0.67-1.17); Magnesium 1.8 mg/dL (1.9-2.7); Potassium 4.9 mmol/L (3.5-5.0); eGFR CKD-EPI 84.2 (>60)
[2023-09-17] MEDS: Magnesium Sulfate IV 1GM/100ML 1 GM/100 ML BAG IV ONE (09:26)
[2023-09-17] MEDS: Iodixanol (CONTRAST) 320 MG/ML 100 ML SDV IV SCH (10:30)
[2023-09-17 13:09] VITALS: BP 97/42
== END 2023-09-17 13:00 | DRG 683 ==
LOC: ED 13:23 → EDHOLD 16:50 → SUATTDRO 16:50 → ICU 19:55 → MED 09-15 16:14
PROVIDERS: ADMIT Internal Medicine; ATTEND Student in an Organized Health Care Education/Training Program